=== PATIENT | male | born 1975 | race Caucasian/White ===

== ENCOUNTER → 2020-09-11 13:40 | Outpatient (CLI) | payer BC, SELFPAY ==
[2020-09-11 13:46] LABS: Basophils # 0.1 K/mm3 (0-0.2); Eosinophils # 0.2 K/mm3 (0.0-0.4); Eosinophils % 3.9 % (0.1-12.0); Hematocrit 49.7 % (42.0-52.0); Lymphocytes % 40.5 % (10-50); Mean Corpuscular HGB Conc 32.2 g/dL (31.8-35.4); Mean Corpuscular Hemoglobin 29.5 pg (27.0-31.2); Mean Corpuscular Volume 91.8 fl (80-94); Monocytes # 0.4 K/mm3 (0.1-1.0); Monocytes % 7.4 % (1.7-9.3); Neutrophils # 2.3 K/mm3 (1.8-7.8); Neutrophils % 46.2 % (37.0-80.0); Platelet Count 333 K/mm3 (142-424); Red Blood Count 5.42 M/mm3 (4.60-6.20); Red Cell Distribution Width 13.4 % (11.5-17.5); White Blood Count 4.9 K/mm3 (4.8-10.8)
[2020-09-11 14:29] LABS: Alanine Aminotransferase 19 U/L (12-78); Albumin/Globulin Ratio 1.4 (1.1-1.8); Alkaline Phosphatase 81 U/L (38-126); Anion Gap 12.4 mEq/L (5-15); Aspartate Amino Transferase 31 U/L (17-59); Bilirubin,Total 0.7 mg/dl (0.2-1.3); Blood Urea Nitrogen 17 mg/dl (9-20); Calcium 10.2 mg/dl (8.4-10.2); Carbon Dioxide 29 mmol/L (22.0-30.0); Chloride 101 mmol/L (98-107); Cholesterol 200 mg/dl (140-200); Estimated Glomerular Filt Rate 72 ml/min (>60); GFR (African American) 88 ML/MIN (>60); Globulin 3.5 g/dL (1.3-3.2); Glucose 108 mg/dl (74-100); HDL Cholesterol 67 mg/dl (40-60); Potassium 4.4 mmoL/L (3.5-5.1); Sodium 138 mmol/L (136-145); Total Protein,Serum 8.5 g/dl (6.3-8.2); Triglycerides 129 mg/dl (30-150); VLDL Cholesterol 26 mg/dL (0-40)
[2020-09-11 14:40] LABS: Direct LDL Cholesterol 91.98 mg/dL (100-129)
[2020-09-11 14:45] LABS: T4 (Thyroxine) 8.6 ug/dl (5.53-11.0)
[2020-09-11 14:46] LABS: 25-OH Vitamin D, Total 29.5 ng/mL (30-100)
[2020-09-11 14:56] LABS: Hemoglobin A1C 5.2 % (4.0-6.0)
[2020-09-11 14:58] LABS: Thyroid Stimulating Hormone 1.06 uIU/mL (0.465-4.68)
[2020-09-13 10:36] LABS: PSA, Free 0.18 ng/mL; Prostate Specific Ag 0.9 ng/mL (0.0-4.0)
== END ==
PROVIDERS: Visit Provider Nurse Practitioner Family
DX: Z00.00 Encounter for general adult medical examination without abnormal findings (principal); E11.9 Type 2 diabetes mellitus without complications; E55.9 Vitamin D deficiency, unspecified; Z12.5 Encounter for screening for malignant neoplasm of prostate
CPT/HCPCS: 80053; 80061; 82306; 83036; 84153; 84154; 84436; 84443; 85025

== ENCOUNTER → 2020-12-11 12:12 | Outpatient (CLI) | payer BC, SELFPAY ==
--- NOTE | 2020-12-11 12:17 | XR_ITS ---
PROCEDURE: XR FOOT WT BEARING LT 3V CLINICAL INDICATION: pain COMPARISON: No exams were available for comparison FINDINGS: No fracture or dislocation. No lytic or blastic change. There is normal mineralization. The joint spaces are well-preserved. No significant degenerative/arthritic changes. No erosive changes evident. Other findings:None. IMPRESSION: No acute findings. Dictated by: Lina Donohue 12/11/2020 14:05 Lina Donohue in [facility] 12/11/2020 14:05
--- NOTE | 2020-12-11 12:17 | XR_ITS ---
PROCEDURE: XR FOOT WT BEARING RT 3V CLINICAL INDICATION: pain COMPARISON: No exams were available for comparison FINDINGS: No fracture or dislocation. No lytic or blastic change. There is normal mineralization. The joint spaces are well-preserved. No significant degenerative/arthritic changes. Early erosive changes noted at the head of the proximal phalanx of the 1st digit. Other findings:None. IMPRESSION: No acute fractures or dislocations. Early erosive changes noted at the head of the proximal phalanx of the 1st digit. Dictated by: Lina Donohue 12/11/2020 14:08 Lina Donohue in [facility] 12/11/2020 14:08
== END ==
PROVIDERS: PCP Nurse Practitioner Family; Visit Provider Nurse Practitioner
DX: M79.672 Pain in left foot (principal); M79.671 Pain in right foot
CPT/HCPCS: 73630

== ENCOUNTER → 2020-12-18 16:02 | Outpatient (CLI) | payer BC, SELFPAY ==
[2020-12-18 16:39] LABS: Basophils # 0.1 K/mm3 (0-0.2); Basophils % 1.3 % (0.1-2.0); Eosinophils # 0.3 K/mm3 (0.0-0.4); Eosinophils % 3.2 % (0.1-12.0); Hemoglobin 13.7 g/dL (14.1-18.0); Lymphocytes # 2.2 K/mm3 (0.7-4.5); Lymphocytes % 27.7 % (10-50); Mean Corpuscular Hemoglobin 28.6 pg (27.0-31.2); Mean Corpuscular Volume 89.6 fl (80-94); Mean Platelet Volume 7.5 fl (7.4-10.4); Monocytes # 0.5 K/mm3 (0.1-1.0); Monocytes % 6.8 % (1.7-9.3); Neutrophils # 4.8 K/mm3 (1.8-7.8); Platelet Count 310 K/mm3 (142-424); Red Cell Distribution Width 12.5 % (11.5-17.5); White Blood Count 7.9 K/mm3 (4.8-10.8)
[2020-12-18 18:02] LABS: Erythrocyte Sedimentation Rate 8 mm/hr (0-15)
[2020-12-18 18:06] LABS: Alanine Aminotransferase 16 U/L (12-78); Albumin Level 5.1 g/dl (3.5-5.0); Albumin/Globulin Ratio 1.6 (1.1-1.8); Alkaline Phosphatase 86 U/L (38-126); Aspartate Amino Transferase 32 U/L (17-59); Bilirubin,Total 0.4 mg/dl (0.2-1.3); Blood Urea Nitrogen 13 mg/dl (9-20); Calcium 9.8 mg/dl (8.4-10.2); Carbon Dioxide 27 mmol/L (22.0-30.0); Chloride 102 mmol/L (98-107); Estimated Glomerular Filt Rate 65 ml/min (>60); GFR (African American) 79 ML/MIN (>60); Globulin 3.1 g/dL (1.3-3.2); Glucose 110 mg/dl (74-100); Sodium 139 mmol/L (136-145); Total Protein,Serum 8.2 g/dl (6.3-8.2)
== END ==
PROVIDERS: Visit Provider Nurse Practitioner
DX: M79.671 Pain in right foot (principal); L60.8 Other nail disorders
CPT/HCPCS: 36415; 80053; 85025; 85651; 86140

== ENCOUNTER → 2020-12-21 09:40 | Outpatient (CLI) | payer BC, SELFPAY ==
--- NOTE | 2020-12-21 09:42 | MR_ITS ---
PROCEDURE: MR FOOT RT WO/W CON CLINICAL INDICATION: foot pain evaluate for sub ungual melanoma. Nail color changes right 4th and 1st toe report Pt states he had covid in September 2020 First and fourth rt toes turned purple in October. Pt denies injury or trauma and any pain. Pt states the cause of this order is due to his prior x-rays showed infection in his toe. Pt is not a diabetic. Office notes scanned into exam. 16ml prohance used for contrast. Lot#[id number] exp:10/2022. COMPARISON: US ECHO ADULT from 03/06/2017 CR XR FOOT WT BEARING LT 3V from 12/11/2020 CR XR FOOT WT BEARING RT 3V from 12/11/2020 TECHNIQUE: Routine multiplanar multi echo sequences are performed without gadolinium enhancement. FINDINGS: Bones: There is vague slight increase in T2 signal involving the distal aspect of the distal phalanx of the great toe. This does not demonstrate contrast enhancement and is of questionable clinical significance. Small amount fluid is present in the subungual region of the great toe. A small well-circumscribed cystic areas present at the distal aspect of the proximal phalanx of the great toe and may represent a small geode. An area of osteochondrosis with osteochondral fragment involving the medial aspect of the talus. The osteochondral fragment measures 6 mm with fluid signal intensity along the undersurface of the fragment. Ligaments: Unremarkable. Tendons: Small amount fluid is present surrounding the flexor digitorum longus and flexor hallucis longus at the posterior talus region. Joints and soft tissues: Small amount fluid is present between the medial and mid cuneiform and at the 1st metatarsophalangeal junction. IMPRESSION: 1. Slight increase in T2 signal involves the distal aspect of the distal phalanx of the great toe. This is of questionable clinical significance. Bone marrow edema from overlying inflammation, infection, or posttraumatic changes are considered. 2. Small amount of subungual fluid of the great toe. 3. Well-circumscribed 4 mm cystic area involves the distal aspect of the proximal phalanx of the great toe medially and may be due to small geode. 4. Osteochondrosis with osteochondral defect involves the medial talus 5. No obvious mass Dictated by: Henrry Mayen MD 12/23/2020 13:47 Henrry Mayen MD in [facility] 12/23/2020 13:47
== END ==
PROVIDERS: PCP Nurse Practitioner Family; Visit Provider Podiatrist
DX: S90.229A Contusion of unspecified lesser toe(s) with damage to nail, initial encounter (principal); L60.8 Other nail disorders; R20.9 Unspecified disturbances of skin sensation
CPT/HCPCS: 73720; A9576

== ENCOUNTER → 2021-07-15 20:15 | Outpatient (CLI) | payer OTHER, SELFPAY | PROVIDERS: Visit Provider Nurse Practitioner Family | DX: Z20.822 Contact with and (suspected) exposure to COVID-19 (principal); J02.9 Acute pharyngitis, unspecified | CPT/HCPCS: C9803; U0003; U0005 ==

== ENCOUNTER 2023-05-04 09:20 | Inpatient (IN) | payer BC, SELFPAY ==
[2023-05-04] VITALS (10 sets, daily range): BP systolic 117–143; BP diastolic 61–87; PULSE 82–107; RESP 18–20; TEMP 36.6; O2SAT 94–99; BMI 24.9
[2023-05-04 09:47] LABS: Basophils % 0.3 % (0.1-2.0); Eosinophils # 0.1 K/mm3 (0.0-0.4); Hemoglobin 16.4 g/dL (14.1-18.0); Lymphocytes # 1.8 K/mm3 (0.7-4.5); Lymphocytes % 12.1 % (10-50); Mean Corpuscular HGB Conc 32.1 g/dL (31.8-35.4); Mean Corpuscular Hemoglobin 28.6 pg (27.0-31.2); Mean Corpuscular Volume 89.1 fl (80-94); Monocytes # 0.9 K/mm3 (0.1-1.0); Monocytes % 6.3 % (1.7-9.3); Neutrophils # 11.6 K/mm3 (1.8-7.8); Neutrophils % 80.3 % (37.0-80.0); Platelet Count 489 K/mm3 (142-424); Red Blood Count 5.73 M/mm3 (4.60-6.20); Red Cell Distribution Width 12.6 % (11.5-17.5); White Blood Count 14.5 K/mm3 (4.8-10.8)
[2023-05-04 09:50] LABS: Chloride 102 mmol/L (98-107); Potassium 4.1 mmoL/L (3.5-5.1); Sodium 139 mmol/L (136-145)
[2023-05-04 09:52] LABS: Alanine Aminotransferase 77 U/L (12-78); Aspartate Amino Transferase 64 U/L (17-59); Blood Urea Nitrogen 10 mg/dl (9-20); Creatinine Clearance Estimated 102 mL/min (50-200); Estimated Glomerular Filt Rate 71 ml/min (>60); GFR (African American) 86 ML/MIN (>60); Lipase 98 U/L (23-300)
[2023-05-04 09:53] LABS: Albumin Level 4.9 g/dl (3.5-5.0); Alkaline Phosphatase 145 U/L (38-126); Anion Gap 21.1 mEq/L (5-15); Bilirubin,Total 1.4 mg/dl (0.2-1.3); Calcium 10.3 mg/dl (8.4-10.2); Carbon Dioxide 20 mmol/L (22.0-30.0); Globulin 4.7 g/dL (1.3-3.2); Glucose 131 mg/dl (74-100); Total Protein,Serum 9.6 g/dl (6.3-8.2)
[2023-05-04 09:56] LABS: Lactic Acid 2.8 mmol/L (0.7-2.1)
--- NOTE | 2023-05-04 10:04 | CT_ITS ---
FINAL REPORT TECHNIQUE: After the administration of intravenous contrast, axial images were obtained through the abdomen and pelvis by computed tomography. This study was performed with technique to keep radiation doses as low as reasonably achievable, (ALARA). Individualized dose reduction techniques using automated exposure control or adjustment of the MA and/or KV according to the patient's size were employed. CLINICAL HISTORY: pain/n/v FINDINGS: Abdomen: The lung bases demonstrate scarring/atelectasis. There is a small, sliding-type hiatal hernia. Gallbladder is present. The liver is normal in size and attenuation. The spleen is unremarkable. The adrenals are normal. The pancreas is unremarkable. The kidneys enhance appropriately. The aorta is normal in caliber. There is no free fluid or adenopathy. There are multitude of fluid-filled loops of small bowel measuring up to 2.4 cm in diameter. Distal small bowel is relatively decompressed. Pattern is highly concerning for high-grade, partial or complete small bowel obstruction. No exact point of obstruction is identified. Pelvis: The appendix is not identified. The urinary bladder is unremarkable. There is moderate pelvic free fluid. IMPRESSION: Findings concerning for mechanical small bowel obstruction. Reviewed, Interpreted and Dictated by Hever Ozuna MD Transcribed by Caty Mata Authenticated and [facility]
--- NOTE | 2023-05-04 10:48 | PC.NURSE ---
RECHECK ON PT PAIN IS MUCH BETTER RESTING QUIETLY HE IS GONNA TRY TO GIVE A URINE SPECIMEN
--- NOTE | 2023-05-04 11:05 | PC.NURSE ---
URINE SENT TO LAB
[2023-05-04 11:08] LABS: Microscopic, Urine URINE MICROSCOPIC (MICROSCOPIC)
[2023-05-04 11:18] LABS: Appearance,Urine CLEAR (Clear); Blood, Urine Negative (Negative); Color,Urine YELLOW (Yellow); Glucose,Urine (UA) Negative (Negative); Ketones,Urine 3+ (Negative); Leukocyte Esterase,Urine Negative (Negative); Nitrate,Urine Negative (Negative); Protein,Urine TRACE (Negative); Urobilinogen,Urine 0.2 EU/dl (0.2)
--- NOTE | 2023-05-04 11:39 | PC.NURSE ---
contacted rad to check on status of ct results, states will fax down preliminary reports
--- NOTE | 2023-05-04 11:40 | HMH.EDGENADL ---
Discharge Plan Disposition Patient Disposition: Admitted Clinical Impressions Clinical Impression: SBO (small bowel obstruction) Discharge ED Provider: Mariam Figueroa General Adult HPI General Chief complaint: Abdominal Pain Stated complaint: severe stomach pain Time Seen by Provider: 05/04/23 09:28 Mode of Arrival: Ambulatory Source of Information: Patient Limitations: No Limitations Description of Symptoms (Recalled from ER Triage Doc. by RN): Pt reports abd pain that began approx 7:30 pm lastnight after eating. Pt reports multiple episodes of vomiting since pain began. Pt is across umbilicus area and in lower back History of Present Illness HPI narrative: This patient is a 48-year-old male with a history of appendectomy presenting to the emergency department for evaluation with concern for periumbilical abdominal pain that started around 7:30 PM last night after eating Tawanda around 5 PM. He states that his at home also had similar symptoms, however her symptoms have resolved. He was up all night vomiting and has been unable to keep anything down. He has had pain and cramping that has been persistent. He denies any fevers, chills, changes in bowel movements, urinary symptoms, rashes, or swelling. Related Data Home Medications Medication Instructions Recorded Confirmed omeprazole 20 mg capsule,delayed 20 mg PO DAILY Acid Reflux 05/04/23 05/04/23 release tadalafil 20 mg tablet 20 mg PO NEEDED PRN Sexual 05/04/23 05/04/23 Activity Allergies Allergy/AdvReac Type Severity Reaction Status Date / Time No Known Allergies Allergy Verified 04/16/23 11:19 [facility] Disclaimer: The information contained in this section may have been updated after the patient was seen, as this information can be updated by other users. Social History Smoking Status: Never smoker alcohol intake: never current occupational status: employed Travel in the last 8 weeks: None household members: significant other housing: house ROS Obtained: Yes All systems reviewed & no additional complaints except as documented Physical Exam General General appearance: alert and in no apparent distress Comment: Uncomfortable appearing Head Head exam: atraumatic and normocephalic Eye Eye exam: Present normal appearance, PERRL and EOMI ENT ENT exam: Present normal exam, normal oropharynx, mucous membranes moist and normal external ear exam Neck Neck exam: Present normal inspection, full ROM and trachea midline; Absent tenderness Chest Chest inspection: Present normal inspection and symmetric chest wall rise; Absent tenderness Respiratory Respiratory exam: Present normal lung sounds bilaterally; Absent respiratory distress, wheezes, stridor or accessory muscle use Cardiovascular Cardiovascular exam: Present regular rate and normal rhythm Abdominal Exam Abdominal exam: Present soft and tenderness (Periumbilical, lower abdomen); Absent distention, guarding or rebound Extremities Exam Extremities exam: Present normal inspection, full ROM and normal capillary refill; Absent tenderness or edema Back Exam Back exam: Present normal inspection and full ROM; Absent tenderness Neurological Exam Neurological exam: Present alert, oriented X3, CN II-XII intact and normal gait; Absent motor sensory deficit Psychiatric Psychiatric exam: Present normal affect and normal mood Skin Skin exam: Present warm and dry Medical Decision Making Medical Records Medical records reviewed: Yes I reviewed the patient's medical records. Reji Inquiry Pt receiving controlled substance: No Vital Signs: 05/04/23 09:26 05/04/23 09:30 05/04/23 10:30 Temperature 97.8 F Temperature Source Oral Pulse Rate 99 H 90 Pulse Rate [Right Radial] 99 H Respiratory Rate 20 20 18 Blood Pressure 117/69 124/77 Blood Pressure [Left Arm] 117/69 Blood Pressure Mean 84 92 Blood Pressure Mean [
--- NOTE | 2023-05-04 11:47 | PC.NURSE ---
Dr. Figueroa s/w Dr. Castillo for admission/consult for small bowel obstruction
--- NOTE | 2023-05-04 11:47 | PC.NURSE ---
ER MD Figueroa speaking with Dr. Castillo
--- NOTE | 2023-05-04 11:54 | PC.NURSE ---
Case management called for admission
--- NOTE | 2023-05-04 11:56 | EXP.HP ---
History of Present Illness *Admission Date: 05/05/23 *Reason for visit:: nausea, vomiting and abdominal pain x 1 day *History of present illness: Mr. Carr is a 48 year old male with a past medical history of GERD who presented to the ED with nausea, vomiting and abdominal pain ever since he had dinner yesterday. Initial workup in the ED reveals leukocytosis with 14.5K WBCs, t bili of 1.4, ast 64, alk phos 145, lactate of 2.8 which improved to 0.8, and an abd/pel ct wo revealed findings concerning for a high grade partial or complete small bowel obstruction. No exact point of obstruction is identified. He had surgery for ruptured appendix in 2003 and no other abdominal surgeries. He denies diarrhea, recent fever, chills and sick contacts. He denies chest pain, shortness of breath, cough and dysuria. [facility] Disclaimer: The information contained in this section may have been updated after the patient was seen, as this information can be updated by other users. Medical History Appendicitis Surgical History (Updated 05/05/23 @ 04:52 by Yordan Claros MD) History of appendectomy Family History (Updated 05/04/23 @ 15:06 by Whitney Hamilton RN) Other No significant family history Social History (Updated 05/04/23 @ 15:07 by Whitney Hamilton RN) Smoking Status: Never smoker alcohol intake: never current occupational status: employed Travel in the last 8 weeks: None household members: significant other housing: house Review of Systems *Gastrointestinal Gastrointestinal: Reports abdominal pain, Reports nausea and Reports vomiting Meds Home Medications and Allergies Home Medications Medication Instructions Recorded Confirmed Type omeprazole 20 mg capsule,delayed 20 mg PO DAILY Acid Reflux 05/04/23 05/04/23 History release tadalafil 20 mg tablet 20 mg PO NEEDED PRN Sexual 05/04/23 05/04/23 History Activity New Prescriptions to Start Prescriptions: Allergies Allergy/AdvReac Type Severity Reaction Status Date / Time No Known Allergies Allergy Verified 05/04/23 17:31 Exam Data for Last 24 hours Vital signs and Labs for Last 24 Hours: Temp Pulse Resp BP Pulse Ox O2 Del Method 97.8 F 90 18 124/77 95 Room Air 05/04/23 09:26 05/04/23 10:30 05/04/23 10:30 05/04/23 10:30 05/04/23 10:30 05/04/23 09:26 Laboratory Results - last 24 hr 05/04/23 09:30: WBC 14.5 H, RBC 5.73, Hgb 16.4, Hct 51.0, MCV 89.1, MCH 28.6, MCHC 32.1, RDW 12.6, Plt Count 489 H, MPV 8.0, Neut % (Auto) 80.3 H, Lymph % (Auto) 12.1, Ray % (Auto) 6.3, Eos % (Auto) 1.0, Baso % (Auto) 0.3, Neut # (Auto) 11.6 H, Lymph # (Auto) 1.8, Ray # (Auto) 0.9, Eos # (Auto) 0.1, Baso # (Auto) 0.0, Sodium 139, Potassium 4.1, Chloride 102, Carbon Dioxide 20 L, Anion Gap 21.1 H, BUN 10, Creatinine 1.10, Estimated Creat Clear 102, Estimated GFR 71, Est GFR ( Amer) 86, Glucose 131 H, Lactate 2.8 H, Calcium 10.3 H, Total Bilirubin 1.4 H, AST 64 H, ALT 77, Alkaline Phosphatase 145 H, Total Protein 9.6 H, Albumin 4.9, Globulin 4.7 H, Albumin/Globulin Ratio 1.0 L, Lipase 98 I & O for Last 24 hours: Intake & Output 05/01/23 05/02/23 05/03/23 05/04/23 23:59 23:59 23:59 23:59 Weight 87.997 kg Constitutional Constitutional: no acute distress *Routine HEENT Exam Head: Present normocephalic Eye: Present EOMI and PERRL ENT: Present mucous membranes moist and other (NG tube) *Routine Neck Exam Neck: Present supple; Absent lymphadenopathy *Routine Respiratory Exam Respiratory: Present CTA bilaterally *Routine Cardiovascular Exam Cardiovascular: Present RRR *Routine Abdominal Exam Abdominal: Present soft, normoactive bowel sounds and distended; Absent tenderness or rebound *Routine Rectal Exam Rectal:: deferred *Routine Genitalia Exam Genitalia:: deferred *Routine Extremities Exam Extremities: Absent cyanosis, clubbing or edema *Routine Skin
--- NOTE | 2023-05-04 12:05 | EXP.SURG.CON ---
History of Present Illness *Admission Date: 05/04/23 *Reason for visit:: Abdominal pain *History of present illness: Patient is a 48-year-old male with prior surgical history of appendectomy. He had onset of abdominal pain beginning approximately 7:30 PM last night on 05/03/2023 after he had eaten Tawanda a couple hours prior. This was followed by multiple episodes of vomiting. Apparently the patient's has had similar symptoms that were self-limited recently. He had diffuse cramping periumbilical pain. Evaluation in the emergency department revealed bilirubin of 1.4, AST 64, alkaline phosphatase 145. White blood cell count 14,500. He had a CT scan abdomen pelvis performed which reveals multiple fluid-filled loops of small bowel measuring up to 2.4 cm in diameter. The distal small bowel relatively decompressed. Pattern is highly concerning for high-grade, partial or complete small bowel obstruction. No exact point of obstruction is identified. Surgery was contacted. Patient states that he previously had open appendectomy for ruptured appendix in 2003 in [facility]. He did have a colonoscopy shortly thereafter which was reportedly normal. [facility] Disclaimer: The information contained in this section may have been updated after the patient was seen, as this information can be updated by other users. Social History Smoking Status: Never smoker alcohol intake: never current occupational status: employed Travel in the last 8 weeks: None household members: significant other housing: house Meds Home Medications and Allergies Home Medications Medication Instructions Recorded Confirmed Type omeprazole 20 mg capsule,delayed 20 mg PO DAILY gerd 05/04/23 05/04/23 History release tadalafil 20 mg tablet 20 mg PO NEEDED PRN Sexual 05/04/23 05/04/23 History Activity New Prescriptions to Start Prescriptions: Allergies Allergy/AdvReac Type Severity Reaction Status Date / Time No Known Allergies Allergy Verified 04/16/23 11:19 Exam (Inpt) Vital signs and Labs for Last 24 Hours: Temp Pulse Resp BP Pulse Ox O2 Del Method 97.8 F 90 18 124/77 95 Room Air 05/04/23 09:26 05/04/23 10:30 05/04/23 10:30 05/04/23 10:30 05/04/23 10:30 05/04/23 09:26 Laboratory Results - last 24 hr 05/04/23 09:30: WBC 14.5 H, RBC 5.73, Hgb 16.4, Hct 51.0, MCV 89.1, MCH 28.6, MCHC 32.1, RDW 12.6, Plt Count 489 H, MPV 8.0, Neut % (Auto) 80.3 H, Lymph % (Auto) 12.1, [place] % (Auto) 6.3, Eos % (Auto) 1.0, Baso % (Auto) 0.3, Neut # (Auto) 11.6 H, Lymph # (Auto) 1.8, [place] # (Auto) 0.9, Eos # (Auto) 0.1, Baso # (Auto) 0.0, Sodium 139, Potassium 4.1, Chloride 102, Carbon Dioxide 20 L, Anion Gap 21.1 H, BUN 10, Creatinine 1.10, Estimated Creat Clear 102, Estimated GFR 71, Est GFR ( Amer) 86, Glucose 131 H, Lactate 2.8 H, Calcium 10.3 H, Total Bilirubin 1.4 H, AST 64 H, ALT 77, Alkaline Phosphatase 145 H, Total Protein 9.6 H, Albumin 4.9, Globulin 4.7 H, Albumin/Globulin Ratio 1.0 L, Lipase 98 I & O for Labs for Last 24 Hours: Intake & Output 05/02/23 05/03/23 05/04/23 05/05/23 11:59 11:59 11:59 11:59 Weight 194 lb Constitutional: no acute distress Head: Present normocephalic Respiratory: Present CTA bilaterally Cardiac: Present Reg Rate and Rhythm GI: Present distention Comments:: Mild tenderness to deep palpation. Some distention. Rectal (male): Present deferred Results Labs 05/04/23 09:30 05/04/23 09:30 Labs: Laboratory Results - last 24 hr 05/04/23 09:30: WBC 14.5 H, RBC 5.73, Hgb 16.4, Hct 51.0, MCV 89.1, MCH 28.6, MCHC 32.1, RDW 12.6, Plt Count 489 H, MPV 8.0, Neut % (Auto) 80.3 H, Lymph % (Auto) 12.1, [place] % (Auto) 6.3, Eos % (Auto) 1.0, Baso % (Auto) 0.3, Neut # (Auto) 11.6 H, Lymph # (Auto) 1.8, [place] # (Auto) 0.9, Eos # (Auto) 0.1, Baso # (Auto) 0.0, Sodium 139, Potassium 4.1, Chloride 102,
--- NOTE | 2023-05-04 12:10 | XR_ITS ---
FINAL REPORT CLINICAL HISTORY: POST NG PLACEMENT COMPARISON: None FINDINGS: NG tube is looped in the esophagus. It appears the loop is at the GE junction. Catheter should be removed and repositioned. The heart size is normal. The mediastinum is normal. The lungs are clear. There are no pleural effusions. There is no pneumothorax. There is no osseous abnormality. IMPRESSION: No acute cardiopulmonary process. NG tube looped in the esophagus. Recommend remove and reposition. Reviewed, Interpreted and Dictated by Hever Ozuna MD Transcribed by Alyssa Baird Authenticated and [facility]
--- NOTE | 2023-05-04 12:13 | PC.NURSE ---
DR STEPHENSON AT BS
[2023-05-04 12:16] LABS: Bilirubin,Urine Negative (Negative)
[2023-05-04 12:20] LABS: Squamous Epithelial Cell,Urine Occasional #/hpf (0-5)
--- NOTE | 2023-05-04 12:32 | PC.NURSE ---
spoke with storehouse clerk reports pt assigned to room 204, room is being cleaned
--- NOTE | 2023-05-04 12:39 | PC.NURSE ---
ng tube pulled at this time. attempted to pull ng back and pt vomited, upon vomiting ng came out through mouth.
--- NOTE | 2023-05-04 12:48 | PC.NURSE ---
pt requested anxiety medication, notified ER MD Figueroa, pt medicated per MAR. Pt given warm blankets. family at BS
--- NOTE | 2023-05-04 12:50 | PC.NURSE ---
report called to carolyn davis on second floor at this, reports will send staff down to transport pt.
--- NOTE | 2023-05-04 13:11 | PC.NURSE ---
arrived to floor from ED by w/c
[2023-05-04 13:56] LABS: Reflex Lactic Add Lactic Reflex
--- NOTE | 2023-05-04 14:07 | XR_ITS ---
FINAL REPORT CLINICAL HISTORY: ng placement EVALUATE NG TUBE PLACEMENT REASON FOR EXAM. COMPARISON: Earlier film from 05/04/2023 FINDINGS: The heart size is normal. The mediastinum is normal. There is no focal infiltrate or edema. There are no pleural effusions. There is no pneumothorax. There is no osseous abnormality. The NG tube is once again curled in the distal esophagus. The tip is pointing cephalad. IMPRESSION: NG tube curled in the distal esophagus with its tip pointing towards the patient's head. Reviewed, Interpreted and Dictated by Hever Ozuna MD Transcribed by Shannan Lopez Authenticated and . [facility]
[2023-05-04 14:29] LABS: Lactic Acid Follow Up (RFLX 1) 0.8 mmol/L (0.7-2.1)
--- NOTE | 2023-05-04 15:30 | PC.NURSE ---
NG adjusted due to curling in the distal esophagus. Readjusted and aspirated gastric contents, NG now at 58 and hooked to low wall suction.
[2023-05-05 04:00] VITALS: BP 119/78; PULSE 111; RESP 18; TEMP 36.5; O2SAT 99; BMI 24.4
[2023-05-05 07:30] LABS: Basophils # 0.1 K/mm3 (0-0.2); Basophils % 0.6 % (0.1-2.0); Eosinophils # 0.1 K/mm3 (0.0-0.4); Eosinophils % 0.7 % (0.1-12.0); Hematocrit 51.4 % (42.0-52.0); Hemoglobin 16.4 g/dL (14.1-18.0); Lymphocytes # 1.7 K/mm3 (0.7-4.5); Lymphocytes % 17.4 % (10-50); Mean Corpuscular Volume 90.8 fl (80-94); Mean Platelet Volume 7.9 fl (7.4-10.4); Monocytes # 1.4 K/mm3 (0.1-1.0); Monocytes % 13.6 % (1.7-9.3); Neutrophils # 6.8 K/mm3 (1.8-7.8); Neutrophils % 67.8 % (37.0-80.0); Platelet Count 448 K/mm3 (142-424); Red Blood Count 5.67 M/mm3 (4.60-6.20); Red Cell Distribution Width 12.9 % (11.5-17.5)
[2023-05-05 07:43] VITALS: BP 127/76; PULSE 110; RESP 18; TEMP 36.8; O2SAT 98
[2023-05-05 07:45] LABS: Chloride 100 mmol/L (98-107); Potassium 3.7 mmoL/L (3.5-5.1); Sodium 137 mmol/L (136-145)
[2023-05-05 07:48] LABS: Alanine Aminotransferase 46 U/L (12-78); Albumin Level 4.3 g/dl (3.5-5.0); Albumin/Globulin Ratio 1.1 (1.1-1.8); Alkaline Phosphatase 126 U/L (38-126); Anion Gap 16.7 mEq/L (5-15); Aspartate Amino Transferase 42 U/L (17-59); Bilirubin,Total 1.1 mg/dl (0.2-1.3); Blood Urea Nitrogen 13 mg/dl (9-20); Calcium 9.3 mg/dl (8.4-10.2); Carbon Dioxide 24 mmol/L (22.0-30.0); Creatinine Clearance Estimated 92 mL/min (50-200); Estimated Glomerular Filt Rate 65 ml/min (>60); GFR (African American) 78 ML/MIN (>60); Glucose 128 mg/dl (74-100); Phosphorous 3.8 mg/dl (2.5-4.5); Total Protein,Serum 8.3 g/dl (6.3-8.2)
[2023-05-05 07:49] LABS: Magnesium 2.3 mg/dl (1.6-2.3)
[2023-05-05 11:29] VITALS: BP 127/74; PULSE 108; RESP 18; TEMP 37; O2SAT 99
--- NOTE | 2023-05-05 11:52 | XR_ITS ---
PROCEDURE INFORMATION: Exam: XR Complete Acute Abdomen Series Including Chest Exam date and time: 05/05/2023 12:01 PM Age: 48 years old Clinical indication: Abdominal pain; Generalized; Patient HX: Abd pain, sbo; Additional info: Abdominal pain, sbo TECHNIQUE: Imaging protocol: Radiologic exam. Complete acute abdomen series, including 2 or more views of the abdomen and a single view chest. COMPARISON: CR XR CHEST PORTABLE 05/04/2023 2:38 PM FINDINGS: Tubes, catheters and devices: There is an NG tube whose tip projects approximately 5 cm below the GE junction and should be advanced another 10 cm for better placement. Lungs: Normal. No consolidation. Pleural spaces: Normal. No pleural effusions. No pneumothorax. Heart/Mediastinum: Normal. No cardiomegaly. Gastrointestinal tract: There are a few scattered air-fluid levels within small bowel loops consistent with partial small bowel obstruction. No free air detected. Intraperitoneal space: See Gastrointestinal tract finding. Bones/joints: Normal. No acute fracture. Soft tissues: Normal. IMPRESSION: 1. NG tube in proximal stomach. 2. Bowel gas pattern consistent with history of partial small bowel obstruction.
[2023-05-05 15:11] VITALS: BP 126/74; PULSE 112; RESP 18; TEMP 37; O2SAT 99
--- NOTE | 2023-05-05 15:35 | PC.NURSE ---
NG tube advanced 10cm to 70cm per
--- NOTE | 2023-05-05 18:22 | EXP.ACUTE.PN ---
Subjective *Date: 05/05/23 *Time: 18:22 Interval history: Denies having any bowel movements or gas as of yet. NG still in place to low wall suction. Denies any further vomiting. No chest pain or shortness of breath. Abdominal discomfort improving but still present. Stable on room air Medical Exam Vital signs and Labs for Last 24 Hours: Vital Signs Temp Pulse Resp BP Pulse Ox O2 Del Method 05/05/23 15:00 Room Air 05/05/23 15:11 98.6 F 112 H 18 126/74 99 Room Air 05/05/23 13:00 Room Air 05/05/23 11:00 Room Air 05/05/23 09:00 Room Air 05/05/23 08:00 Room Air 05/05/23 11:29 98.6 F 108 H 18 127/74 99 Room Air 05/05/23 07:43 98.3 F 110 H 18 127/76 98 Room Air 05/05/23 06:43 Room Air 05/05/23 04:53 Room Air 05/05/23 04:00 97.7 F 111 H 18 119/78 99 Room Air 05/05/23 02:25 Room Air 05/05/23 01:00 Room Air 05/04/23 23:00 Room Air 05/04/23 20:00 Room Air 05/04/23 21:00 Room Air 05/04/23 20:00 97.8 F 107 H 18 126/77 94 L Room Air 05/04/23 19:00 Room Air Intake and Output 05/05/23 05/05/23 05/05/23 07:59 15:59 23:59 Intake Total 837 / 837 0 / 837 Output Total 1300 / 1500 200 / 1500 0 / 1500 Balance -463 / -663 -200 / -663 0 / -663 Intake: Intake, Oral Amount 0 / 0 0 / 0 Intake, Total IV Amount 837 / 837 Dex 5% in 0.45% NaCl 1,000 ml @ 837 / 837 75 mls/hr IV .[id number] [facility] Rx#: [id number] Output: Output, Urine Amount 250 / 450 200 / 450 0 / 450 Output, Gastric Drainage Amount 1050 / 1050 Left Nare 1050 / 1050 Other: Number of Unmeasured Voids 0 0 0 Weight 86.381 kg Patient Weight 05/05/23 23:59 Weight 86.381 kg Laboratory Results - last 24 hr 05/05/23 06:55: WBC 10.0 D, RBC 5.67, Hgb 16.4, Hct 51.4, MCV 90.8, MCH 29.0, MCHC 32.0, RDW 12.9, Plt Count 448 H, MPV 7.9, Neut % (Auto) 67.8, Lymph % (Auto) 17.4, [place] % (Auto) 13.6 H, Eos % (Auto) 0.7, Baso % (Auto) 0.6, Neut # (Auto) 6.8, Lymph # (Auto) 1.7, [place] # (Auto) 1.4 H, Eos # (Auto) 0.1, Baso # (Auto) 0.1, Sodium 137, Potassium 3.7, Chloride 100, Carbon Dioxide 24, Anion Gap 16.7 H, BUN 13 D, Creatinine 1.20, Estimated Creat Clear 92, Estimated GFR 65, Est GFR ( Amer) 78, Glucose 128 H, Calcium 9.3, Phosphorus 3.8, Magnesium 2.3, Total Bilirubin 1.1, AST 42 D, ALT 46 D, Alkaline Phosphatase 126, Total Protein 8.3 H, Albumin 4.3 D, Globulin 4.0 H, Albumin/Globulin Ratio 1.1 I & O for Labs for Last 24 Hours: Intake & Output 05/02/23 05/03/23 05/04/23 05/05/23 23:59 23:59 23:59 23:59 Intake Total 1000 / 1000 837 / 837 Output Total 300 / 300 1500 / 1500 Balance 700 / 700 -663 / -663 Weight 87.997 kg 86.381 kg Constitutional: Present no acute distress and average body habitus Head: Present atraumatic and normocephalic ENT: Present normal exam Comment:: NG in right nare Respiratory: Present normal respiratory effort; Absent rhonchi, stridor, wheezes or crackles Cardiac: Present Reg Rate and Rhythm GI: Present soft, tenderness (non focal) and normal bowel sounds; Absent distention Extremities: Present normal inspection and full ROM Skin: Present intact; Absent erythema Neuro: Present Grossly Intact, alert, awake, oriented x 3 and moves all extremities Assessment and Plan *Assessment and plan (1) SBO (small bowel obstruction): Status: Acute Category: Medical Code(s): K56.609 - Unspecified intestinal obstruction, unspecified as to partial versus complete obstruction (2) Gastroesophageal reflux disease: Status: Acute Category: Medical Code(s): K21.9 - Gastro-esophageal reflux disease without esophagitis Plan 48-year-old male with concern for small bowel obstruction. Continue with NG and bowel rest. Surgery consulted, appreciate their recommendations. Continues to require inpatient management. Problems addressed as follows: SBO -NG in place, co
[2023-05-05 20:00] VITALS: BP 120/70; PULSE 104; RESP 18; TEMP 37.1; O2SAT 95; O2SAT 99
--- NOTE | 2023-05-05 23:01 | PC.NURSE ---
PATIENT C/O NAUSEA. SAYS ZOFRAN NOT VERY HELPFUL. ARIADNA N.P. NOTIFIED. INSTRUCTED TO GIVE THE ZOFRAN IN 15 MINS AND CHECK FOR EFFECTIVENESS.
[2023-05-06 04:00] VITALS: BP 126/71; PULSE 110; RESP 18; TEMP 36.6; O2SAT 95; BMI 24.5
--- NOTE | 2023-05-06 04:09 | PC.NURSE ---
PATIENT A/O X 4. N/G TO LEFT NARE IN PLACE AND TO CONTINUOUS LOW WALL SUCTION. LARGE AMTS DARK GRRN GASTRIC SECRETIONS RETURNED. CONTINUES TO HAVE BOUTS OF NAUSEA. ABDOMEN MILDLY DISTENDED WITH + BOWEL SOUNDS X 4. HAS NOT PASSED GAS OR HAD BM YET. SPOUSE AT BEDSIDE.
[2023-05-06 06:35] LABS: Chloride 97 mmol/L (98-107); Sodium 135 mmol/L (136-145)
[2023-05-06 06:36] LABS: Basophils # 0.1 K/mm3 (0-0.2); Basophils % 0.6 % (0.1-2.0); Eosinophils # 0.1 K/mm3 (0.0-0.4); Hematocrit 49.1 % (42.0-52.0); Hemoglobin 15.8 g/dL (14.1-18.0); Lymphocytes # 1.8 K/mm3 (0.7-4.5); Lymphocytes % 15.3 % (10-50); Mean Corpuscular HGB Conc 32.1 g/dL (31.8-35.4); Mean Corpuscular Hemoglobin 28.9 pg (27.0-31.2); Mean Corpuscular Volume 90.1 fl (80-94); Mean Platelet Volume 8.3 fl (7.4-10.4); Monocytes # 1.5 K/mm3 (0.1-1.0); Monocytes % 13.1 % (1.7-9.3); Neutrophils # 8.1 K/mm3 (1.8-7.8); Neutrophils % 70.1 % (37.0-80.0); Platelet Count 440 K/mm3 (142-424); Red Blood Count 5.45 M/mm3 (4.60-6.20); Red Cell Distribution Width 12.6 % (11.5-17.5); White Blood Count 11.5 K/mm3 (4.8-10.8)
[2023-05-06 06:37] LABS: Blood Urea Nitrogen 19 mg/dl (9-20); Creatinine Clearance Estimated 85 mL/min (50-200); Estimated Glomerular Filt Rate 59 ml/min (>60); GFR (African American) 71 ML/MIN (>60)
[2023-05-06 06:38] LABS: Alanine Aminotransferase 35 U/L (12-78); Albumin Level 3.9 g/dl (3.5-5.0); Albumin/Globulin Ratio 1.1 (1.1-1.8); Alkaline Phosphatase 103 U/L (38-126); Aspartate Amino Transferase 32 U/L (17-59); Bilirubin,Total 1.1 mg/dl (0.2-1.3); Calcium 8.9 mg/dl (8.4-10.2); Carbon Dioxide 29 mmol/L (22.0-30.0); Globulin 3.7 g/dL (1.3-3.2); Glucose 127 mg/dl (74-100); Magnesium 2.2 mg/dl (1.6-2.3); Total Protein,Serum 7.6 g/dl (6.3-8.2)
[2023-05-06 07:38] VITALS: BP 124/69; PULSE 96; RESP 18; TEMP 36.7; O2SAT 95
--- NOTE | 2023-05-06 08:26 | FL_ITS ---
PROCEDURE INFORMATION: Exam: FL Small Intestine Exam date and time: 05/06/2023 9:06 AM Age: 48 years old Clinical indication: Condition or disease; Condition/disease: R/O sbo TECHNIQUE: Imaging protocol: Radiologic examination, small intestine, includes multiple serial images. Fluoroscopy is included if performed. COMPARISON: CR XR ACUTE ABDOMEN SERIES 05/05/2023 12:01 RADIATION DOSE METRICS: Fluoroscopy time (seconds): Not provided Number of fluoro spot images: 7 Reference air kerma (DAHIANA): Not provided. FINDINGS: Asbestos Worker: None performed. Intestine: On immediate post contrast imaging, bowel contrast extends into the jejunum. The proximal jejunum is dilated. By 4 hours, the contrast has reached the rectosigmoid colon. The majority of the small bowel is dilated and fluid-filled. IMPRESSION: Findings most likely represent partial small bowel obstruction.
--- NOTE | 2023-05-06 08:33 | EXP.SURG.PN ---
Subjective Patient reports: no new complaints and no flatus Narrative: Still with intermittent nausea that he claims is when the NG tube does not work right . Exam Data for Last 24 hours Vital signs and Labs for Last 24 Hours: Temp Pulse Resp BP Pulse Ox O2 Del Method 98.1 F 96 H 18 124/69 95 Room Air 05/06/23 07:38 05/06/23 07:38 05/06/23 07:38 05/06/23 07:38 05/06/23 07:38 05/06/23 08:00 Laboratory Results - last 24 hr 05/06/23 06:07: WBC 11.5 H, RBC 5.45, Hgb 15.8, Hct 49.1, MCV 90.1, MCH 28.9, MCHC 32.1, RDW 12.6, Plt Count 440 H, MPV 8.3, Neut % (Auto) 70.1, Lymph % (Auto) 15.3, [place] % (Auto) 13.1 H, Eos % (Auto) 1.0, Baso % (Auto) 0.6, Neut # (Auto) 8.1 H, Lymph # (Auto) 1.8, [place] # (Auto) 1.5 H, Eos # (Auto) 0.1, Baso # (Auto) 0.1, Sodium 135 L, Potassium 4.0, Chloride 97 L, Carbon Dioxide 29, Anion Gap 13.0, BUN 19 D, Creatinine 1.30 H, Estimated Creat Clear 85, Estimated GFR 59, Est GFR ( Amer) 71, Glucose 127 H, Calcium 8.9, Magnesium 2.2, Total Bilirubin 1.1, AST 32, ALT 35, Alkaline Phosphatase 103, Total Protein 7.6, Albumin 3.9, Globulin 3.7 H, Albumin/Globulin Ratio 1.1 I & O for Last 24 hours: Intake & Output 05/03/23 05/04/23 05/05/23 05/06/23 11:59 11:59 11:59 11:59 Intake Total 1837 / 1837 1704 / 1704 Output Total 1800 / 1800 1100 / 1100 Balance 37 / 604 / 604 Weight 194 lb 190 lb 7 oz 190 lb 12.8 oz Constitutional Constitutional: no acute distress *Routine Respiratory Exam Respiratory: Absent respiratory distress *Routine Cardiovascular Exam Cardiovascular: Present RRR *Routine Abdominal Exam Abdominal: Present soft Comments: The patient currently is sitting in chair (supine exam not completed) Progress Note: A&P Assessment and plan (1) SBO (small bowel obstruction): Status: Acute Assessment and plan: Small bowel follow-through pending (2) Gastroesophageal reflux disease: Status: Acute
[2023-05-06 11:27] VITALS: BP 146/84; PULSE 98; RESP 17; TEMP 36.4; O2SAT 96
--- NOTE | 2023-05-06 13:06 | EXP.ACUTE.PN ---
Subjective *Date: 05/06/23 *Time: 13:06 Interval history: NG remains in place. Transition to clamped this morning after receiving oral contrast for small bowel follow-through. Stable on room air. Making urine. Has had some nausea since clamping NG. Afebrile and hemodynamically stable. Medical Exam Vital signs and Labs for Last 24 Hours: Vital Signs Temp Pulse Resp BP Pulse Ox O2 Del Method 05/06/23 12:43 Room Air 05/06/23 11:27 97.5 F L 98 H 17 146/84 H 96 Room Air 05/06/23 11:00 Room Air 05/06/23 09:00 Room Air 05/06/23 08:00 Room Air 05/06/23 07:38 98.1 F 96 H 18 124/69 95 Room Air 05/06/23 06:40 Room Air 05/06/23 04:00 97.9 F 110 H 18 126/71 95 Room Air 05/06/23 04:51 Room Air 05/06/23 03:00 Room Air 05/06/23 01:00 Room Air 05/05/23 22:59 Room Air 05/05/23 21:00 Room Air 05/05/23 20:00 98.7 F 104 H 18 120/70 95 Room Air 05/05/23 20:00 99 Room Air 05/05/23 19:00 Room Air 05/05/23 15:00 Room Air 05/05/23 15:11 98.6 F 112 H 18 126/74 99 Room Air Intake and Output 05/05/23 05/06/23 05/06/23 23:59 07:59 15:59 Intake Total 1704 / 1704 Output Total 450 / 1950 650 / 650 0 / 650 Balance -450 / -1113 1054 / 1054 0 / 1054 Intake: Intake, Oral Amount 120 / 120 Intake, Total IV Amount 1584 / 1584 Dex 5% in 0.45% NaCl 1,000 ml @ 1584 / 1584 75 mls/hr IV .[id number] [facility] Rx#: [id number] Output: Output, Urine Amount 0 / 450 0 / 0 0 / 0 Output, Other Amount 450 / 450 Output, Gastric Drainage Amount 650 / 650 Left Nare 650 / 650 Other: Number of Voids 2 Number of Unmeasured Voids 0 1 1 Weight 86.545 kg Patient Weight 05/06/23 23:59 Weight 86.545 kg Laboratory Results - last 24 hr 05/06/23 06:07: WBC 11.5 H, RBC 5.45, Hgb 15.8, Hct 49.1, MCV 90.1, MCH 28.9, MCHC 32.1, RDW 12.6, Plt Count 440 H, MPV 8.3, Neut % (Auto) 70.1, Lymph % (Auto) 15.3, [place] % (Auto) 13.1 H, Eos % (Auto) 1.0, Baso % (Auto) 0.6, Neut # (Auto) 8.1 H, Lymph # (Auto) 1.8, [place] # (Auto) 1.5 H, Eos # (Auto) 0.1, Baso # (Auto) 0.1, Sodium 135 L, Potassium 4.0, Chloride 97 L, Carbon Dioxide 29, Anion Gap 13.0, BUN 19 D, Creatinine 1.30 H, Estimated Creat Clear 85, Estimated GFR 59, Est GFR ( Amer) 71, Glucose 127 H, Calcium 8.9, Magnesium 2.2, Total Bilirubin 1.1, AST 32, ALT 35, Alkaline Phosphatase 103, Total Protein 7.6, Albumin 3.9, Globulin 3.7 H, Albumin/Globulin Ratio 1.1 I & O for Labs for Last 24 Hours: Intake & Output 05/03/23 05/04/23 05/05/23 05/06/23 23:59 23:59 23:59 23:59 Intake Total 1000 / 1000 837 / 837 1704 / 1704 Output Total 300 / 300 1950 / 1950 650 / 650 Balance 700 / 700 -1113 / -1113 1054 / 1054 Weight 87.997 kg 86.381 kg 86.545 kg Constitutional: Present no acute distress and average body habitus Head: Present atraumatic and normocephalic ENT: Present normal exam Comment:: NG in right nare Respiratory: Present normal respiratory effort; Absent rhonchi, stridor, wheezes or crackles Cardiac: Present Reg Rate and Rhythm GI: Present soft, tenderness (non focal) and normal bowel sounds; Absent distention Extremities: Present normal inspection and full ROM Skin: Present intact; Absent erythema Neuro: Present Grossly Intact, alert, awake, oriented x 3 and moves all extremities Assessment and Plan *Assessment and plan (1) SBO (small bowel obstruction): Status: Acute Category: Medical Code(s): K56.609 - Unspecified intestinal obstruction, unspecified as to partial versus complete obstruction (2) Gastroesophageal reflux disease: Status: Acute Category: Medical Code(s): K21.9 - Gastro-esophageal reflux disease without esophagitis Plan 48-year-old male with concern for small bowel obstruction. Continue with NG and bowel rest. Surgery consulted, appreciate their recommendations. Continues to require inpatient man
--- NOTE | 2023-05-06 13:15 | EXP.SURG.PN ---
Subjective Narrative: Patient still undergoing imaging with small bowel follow-through. He has had multiple liquid bowel movements. This is reassuring. However, he also has had significant amount of vomiting. Review of the early images reveals contrast in the small bowel. Exam Data for Last 24 hours Vital signs and Labs for Last 24 Hours: Temp Pulse Resp BP Pulse Ox O2 Del Method 97.5 F L 98 H 17 146/84 H 96 Room Air 05/06/23 11:27 05/06/23 11:27 05/06/23 11:27 05/06/23 11:27 05/06/23 11:27 05/06/23 12:43 Laboratory Results - last 24 hr 05/06/23 06:07: WBC 11.5 H, RBC 5.45, Hgb 15.8, Hct 49.1, MCV 90.1, MCH 28.9, MCHC 32.1, RDW 12.6, Plt Count 440 H, MPV 8.3, Neut % (Auto) 70.1, Lymph % (Auto) 15.3, [place] % (Auto) 13.1 H, Eos % (Auto) 1.0, Baso % (Auto) 0.6, Neut # (Auto) 8.1 H, Lymph # (Auto) 1.8, [place] # (Auto) 1.5 H, Eos # (Auto) 0.1, Baso # (Auto) 0.1, Sodium 135 L, Potassium 4.0, Chloride 97 L, Carbon Dioxide 29, Anion Gap 13.0, BUN 19 D, Creatinine 1.30 H, Estimated Creat Clear 85, Estimated GFR 59, Est GFR ( Amer) 71, Glucose 127 H, Calcium 8.9, Magnesium 2.2, Total Bilirubin 1.1, AST 32, ALT 35, Alkaline Phosphatase 103, Total Protein 7.6, Albumin 3.9, Globulin 3.7 H, Albumin/Globulin Ratio 1.1 I & O for Last 24 hours: Intake & Output 05/04/23 05/05/23 05/06/23 05/07/23 11:59 11:59 11:59 11:59 Intake Total 1837 / 1837 1704 / 1704 Output Total 1800 / 1800 1100 / 1100 0 / 0 Balance 37 / 37 604 / 604 0 / 0 Weight 194 lb 190 lb 7 oz 190 lb 12.8 oz Progress Note: A&P Assessment and plan (1) SBO (small bowel obstruction): Status: Acute Assessment and plan: Await delayed imaging. If this shows contrast through to the colon attempt may be made at removing the nasogastric tube as he feels that this is causing him some gagging and inducing vomiting. However, I did explain to him that given his clinical symptoms he may require surgical intervention. (2) Gastroesophageal reflux disease: Status: Acute
[2023-05-06 15:08] VITALS: BP 136/85; PULSE 94; RESP 18; TEMP 36.6; O2SAT 95
--- NOTE | 2023-05-06 16:18 | PC.NURSE ---
PT IS RESTING IN BED WITH FAMILY AT BEDSIDE. ALERT AND ORIENTED X4. PT HAS AMBULATED TO THE BATHROOM AND IN THE ROOM SEVERAL TIMES THIS SHIFT. PT HAS HAD SEVERAL LOOSE BOWEL MOVEMENTS. PT STATES HE FEELS NAUSEATED WHEN THE NG TUBE IS DISCONNECTED. 800 ML'S OF GREEN GASTRIC CONTENTS EMPTIED FROM NG CANISTER. ABDOMEN SOFT/NON TENDER/MILDLY DISTENDED. LUNG SOUNDS CLEAR. VSS. WILL CONTINUE TO MONITOR.
[2023-05-06 20:00] VITALS: BP 117/77; PULSE 89; RESP 18; TEMP 36.8; O2SAT 98
[2023-05-07] VITALS (7 sets, daily range): BP systolic 102–127; BP diastolic 64–79; PULSE 80–94; RESP 16–20; TEMP 36.5–36.9; O2SAT 94–98; BMI 23.8; BMI 23.7
--- NOTE | 2023-05-07 05:10 | PC.NURSE ---
VS stable, pt on room air. NG tube in left nare at 70. 500 output noted from ng. No nausea noted. Pt NPO for possible surgery. No changes noted.
[2023-05-07 07:08] LABS: Basophils # 0.1 K/mm3 (0-0.2); Basophils % 0.7 % (0.1-2.0); Eosinophils # 0.2 K/mm3 (0.0-0.4); Eosinophils % 1.6 % (0.1-12.0); Hematocrit 48.4 % (42.0-52.0); Hemoglobin 15.9 g/dL (14.1-18.0); Lymphocytes # 2.1 K/mm3 (0.7-4.5); Lymphocytes % 19.4 % (10-50); Mean Corpuscular HGB Conc 32.7 g/dL (31.8-35.4); Mean Corpuscular Hemoglobin 29.3 pg (27.0-31.2); Mean Corpuscular Volume 89.6 fl (80-94); Mean Platelet Volume 8.1 fl (7.4-10.4); Monocytes # 1.3 K/mm3 (0.1-1.0); Neutrophils % 66.3 % (37.0-80.0); Platelet Count 428 K/mm3 (142-424); Red Blood Count 5.41 M/mm3 (4.60-6.20); Red Cell Distribution Width 12.7 % (11.5-17.5); White Blood Count 10.5 K/mm3 (4.8-10.8)
[2023-05-07 07:23] LABS: Chloride 93 mmol/L (98-107); Potassium 3.4 mmoL/L (3.5-5.1); Sodium 137 mmol/L (136-145)
[2023-05-07 07:25] LABS: Alanine Aminotransferase 34 U/L (12-78); Alkaline Phosphatase 100 U/L (38-126); Aspartate Amino Transferase 36 U/L (17-59); Bilirubin,Total 0.8 mg/dl (0.2-1.3); Blood Urea Nitrogen 27 mg/dl (9-20); Creatinine Clearance Estimated 77 mL/min (50-200); Estimated Glomerular Filt Rate 54 ml/min (>60); GFR (African American) 65 ML/MIN (>60)
[2023-05-07 07:26] LABS: Albumin Level 4.2 g/dl (3.5-5.0); Anion Gap 14.4 mEq/L (5-15); Calcium 9.4 mg/dl (8.4-10.2); Carbon Dioxide 33 mmol/L (22.0-30.0); Globulin 4.1 g/dL (1.3-3.2); Glucose 122 mg/dl (74-100); Total Protein,Serum 8.3 g/dl (6.3-8.2)
[2023-05-07 07:28] LABS: Magnesium 2.4 mg/dl (1.6-2.3)
--- NOTE | 2023-05-07 07:34 | XR_ITS ---
FINAL REPORT CLINICAL HISTORY: BOWEL OBSTRUCTION COMPARISON: 05/05/2023 FINDINGS: Chest: The heart and mediastinal within normal limits. There is mild scarring or atelectasis at the right lung base. There is no pneumothorax. Osseous structures are unremarkable. Abdomen: AP and upright views of the abdomen were obtained. NG tube is present with the tip below the inferior margin of the film. Contrast is seen in the decompressed colon. There is no free air. No abnormal calcifications are identified. IMPRESSION: Mild scarring or atelectasis right lung base. NG tube present. Contrast seen in the decompressed colon. Reviewed, Interpreted and Dictated by Hever Ozuna MD Transcribed by Alyssa Baird Authenticated and [facility]
--- NOTE | 2023-05-07 07:55 | P.PN_ITS ---
Subjective Narrative: Patient states that he actually feels pretty good. He has had some problems when the NG tube is clamped with nausea and vomiting. He attributes this to gag reflex and NG tube irritation. Small bowel follow-through reveals contrast to the rectosigmoid colon by 4 hours interpreted as findings most likely represent partial small bowel obstruction. Exam Data for Last 24 hours Vital signs and Labs for Last 24 Hours: Temp Pulse Resp BP Pulse Ox O2 Del Method 98.4 F 94 H 18 122/78 96 Room Air 05/07/23 04:00 05/07/23 04:00 05/07/23 04:00 05/07/23 04:00 05/07/23 04:00 05/07/23 06:41 Laboratory Results - last 24 hr 05/07/23 05:30: WBC 10.5, RBC 5.41, Hgb 15.9, Hct 48.4, MCV 89.6, MCH 29.3, MCHC 32.7, RDW 12.7, Plt Count 428 H, MPV 8.1, Neut % (Auto) 66.3, Lymph % (Auto) 19.4, [place] % (Auto) 12.0 H, Eos % (Auto) 1.6, Baso % (Auto) 0.7, Neut # (Auto) 7.0, Lymph # (Auto) 2.1, [place] # (Auto) 1.3 H, Eos # (Auto) 0.2, Baso # (Auto) 0.1, Sodium 137, Potassium 3.4 L, Chloride 93 L, Carbon Dioxide 33 H, Anion Gap 14.4, BUN 27 H D, Creatinine 1.40 H, Estimated Creat Clear 77, Estimated GFR 54 L, Est GFR ( Amer) 65, Glucose 122 H, Calcium 9.4, Magnesium 2.4 H, Total Bilirubin 0.8, AST 36, ALT 34, Alkaline Phosphatase 100, Total Protein 8.3 H, Albumin 4.2, Globulin 4.1 H, Albumin/Globulin Ratio 1.0 L I & O for Last 24 hours: Intake & Output 05/04/23 05/05/23 05/06/23 05/07/23 11:59 11:59 11:59 11:59 Intake Total 1837 / 1837 1704 / 1704 2443 / 2443 Output Total 1800 / 1800 1100 / 1100 2049 Balance 37 / 37 604 / 604 393 / 393 Weight 194 lb 190 lb 7 oz 190 lb 12.8 oz 185 lb 7 oz *Routine Abdominal Exam Abdominal: Present soft; Absent tenderness Progress Note: A&P Assessment and plan (1) SBO (small bowel obstruction): Status: Acute Assessment and plan: Plan to follow-up with images this morning. Pending these findings may do attempt at clamping nasogastric tube. Of course if he does not tolerate this or images show ongoing obstruction could require operative intervention. However, patient has subjectively shown clinical improvement. (2) Gastroesophageal reflux disease: Status: Acute
--- NOTE | 2023-05-07 12:56 | EXP.ACUTE.PN ---
Subjective *Date: 05/07/23 *Time: 12:56 Interval history: Patient feeling better this morning. Having small bowel movements. Small bowel follow-through showed partial small bowel obstruction. Has dry heaving with gagging due to NG tube. Otherwise does not have zia nausea. No shortness of breath or chest pain. Has had a mildly productive cough but was sick before he came in per his report. No fever, confusion, headache. Medical Exam Vital signs and Labs for Last 24 Hours: Vital Signs Temp Pulse Resp BP Pulse Ox O2 Del Method 05/07/23 12:00 97.9 F 87 16 127/79 97 Room Air 05/07/23 11:41 Room Air 05/07/23 09:48 Room Air 05/07/23 08:00 98 Room Air 05/07/23 09:00 Room Air 05/07/23 08:00 97.7 F 93 H 17 127/74 95 Room Air 05/07/23 06:41 Room Air 05/07/23 04:50 Room Air 05/07/23 04:00 98.4 F 94 H 18 122/78 96 Room Air 05/07/23 03:00 Room Air 05/07/23 01:00 Room Air 05/06/23 23:00 Room Air 05/06/23 20:20 Room Air 05/07/23 00:00 98.0 F 93 H 18 118/70 97 Room Air 05/06/23 21:00 Room Air 05/06/23 20:00 98.2 F 89 18 117/77 98 Room Air 05/06/23 18:41 Room Air 05/06/23 17:00 Room Air 05/06/23 15:08 97.8 F 94 H 18 136/85 95 Room Air 05/06/23 14:29 Room Air Intake and Output 05/06/23 05/07/23 05/07/23 23:59 07:59 15:59 Intake Total 1930 512 / 171 1200 / 1712 Output Total 1550 / 2200 500 / 500 0 / 500 Balance 381 / 1435 1211 1200 1212 Intake: Intake, Oral Amount 0 / 0 Intake, Total IV Amount 1930 512 / 1712 1200 / 2 Dex 5% in 0.45% NaCl 1,000 ml @ 1930 512 / 512 75 mls/hr IV .[id number] [facility] Rx#: [id number] KCl 10mEq/100ml 100 ml @ 100 200 / 200 mls/hr IV Q1H [facility] Rx#:[id number] Lactated Ringers 1000ML 1,000 1000 / 1000 ml @ 250 mls/hr IV .Q4H [facility] Rx# :[id number] Output: Output, Urine Amount 0 / 0 0 / 0 0 / 0 Output, Gastric Drainage Amount 1550 / 2200 500 / 500 Left Nare 1550 / 2200 500 / 500 Other: Number of Unmeasured Voids 1 1 1 Number of Bowel Movements 1 Weight 84.113 kg Patient Weight 05/07/23 23:59 Weight 84.113 kg Laboratory Results - last 24 hr 05/07/23 05:30: WBC 10.5, RBC 5.41, Hgb 15.9, Hct 48.4, MCV 89.6, MCH 29.3, MCHC 32.7, RDW 12.7, Plt Count 428 H, MPV 8.1, Neut % (Auto) 66.3, Lymph % (Auto) 19.4, [place] % (Auto) 12.0 H, Eos % (Auto) 1.6, Baso % (Auto) 0.7, Neut # (Auto) 7.0, Lymph # (Auto) 2.1, [place] # (Auto) 1.3 H, Eos # (Auto) 0.2, Baso # (Auto) 0.1, Sodium 137, Potassium 3.4 L, Chloride 93 L, Carbon Dioxide 33 H, Anion Gap 14.4, BUN 27 H D, Creatinine 1.40 H, Estimated Creat Clear 77, Estimated GFR 54 L, Est GFR ( Amer) 65, Glucose 122 H, Calcium 9.4, Magnesium 2.4 H, Total Bilirubin 0.8, AST 36, ALT 34, Alkaline Phosphatase 100, Total Protein 8.3 H, Albumin 4.2, Globulin 4.1 H, Albumin/Globulin Ratio 1.0 L I & O for Labs for Last 24 Hours: Intake & Output 05/04/23 05/05/23 05/06/23 05/07/23 23:59 23:59 23:59 23:59 Intake Total 1000 / 1000 837 / 837 3635 / 3635 1712 / 1712 Output Total 300 / 300 1950 / 1950 2200 / 2200 500 / 500 Balance 700 / 700 -1113 / -1113 1435 / 1435 1212 / 1212 Weight 87.997 kg 86.381 kg 86.545 kg 84.113 kg Constitutional: Present no acute distress and average body habitus Head: Present atraumatic and normocephalic ENT: Present normal exam Comment:: NG in right nare Respiratory: Present normal respiratory effort; Absent rhonchi, stridor, wheezes or crackles Cardiac: Present Reg Rate and Rhythm GI: Present soft, tenderness (non focal) and normal bowel sounds; Absent distention Extremities: Present normal inspection and full ROM Skin: Present intact; Absent erythema Neuro: Present Grossly Intact, alert, awake, oriented x 3 and moves all extremities Assessment and Plan *Assessment and plan (1) SBO (small bowel obstruction): Status: A
--- NOTE | 2023-05-07 13:06 | PC.NURSE ---
NG removed per Dr. Castillo verbal.
[2023-05-08 04:00] VITALS: BP 109/64; PULSE 80; RESP 20; TEMP 36.6; O2SAT 94; BMI 24.0
--- NOTE | 2023-05-08 04:47 | PC.NURSE ---
Patient has had a great night. No issues. Patient has walked the halls and tolerated sips and chips with no pain or nausea. Patient did get a bath last night
[2023-05-08 06:17] LABS: Basophils # 0.1 K/mm3 (0-0.2); Basophils % 0.8 % (0.1-2.0); Eosinophils # 0.2 K/mm3 (0.0-0.4); Eosinophils % 2.9 % (0.1-12.0); Hematocrit 43.8 % (42.0-52.0); Hemoglobin 14.3 g/dL (14.1-18.0); Lymphocytes # 1.7 K/mm3 (0.7-4.5); Lymphocytes % 20.9 % (10-50); Mean Corpuscular HGB Conc 32.5 g/dL (31.8-35.4); Mean Corpuscular Hemoglobin 28.7 pg (27.0-31.2); Mean Corpuscular Volume 88.3 fl (80-94); Mean Platelet Volume 7.7 fl (7.4-10.4); Monocytes # 0.9 K/mm3 (0.1-1.0); Monocytes % 10.5 % (1.7-9.3); Neutrophils # 5.3 K/mm3 (1.8-7.8); Platelet Count 345 K/mm3 (142-424); Red Blood Count 4.96 M/mm3 (4.60-6.20); Red Cell Distribution Width 12.4 % (11.5-17.5); White Blood Count 8.1 K/mm3 (4.8-10.8)
[2023-05-08 06:19] LABS: Chloride 94 mmol/L (98-107); Potassium 3.3 mmoL/L (3.5-5.1); Sodium 134 mmol/L (136-145)
[2023-05-08 06:22] LABS: Alanine Aminotransferase 26 U/L (12-78); Albumin Level 3.8 g/dl (3.5-5.0); Albumin/Globulin Ratio 1.1 (1.1-1.8); Alkaline Phosphatase 80 U/L (38-126); Anion Gap 14.3 mEq/L (5-15); Aspartate Amino Transferase 28 U/L (17-59); Blood Urea Nitrogen 24 mg/dl (9-20); Calcium 8.8 mg/dl (8.4-10.2); Carbon Dioxide 29 mmol/L (22.0-30.0); Creatinine Clearance Estimated 91 mL/min (50-200); Estimated Glomerular Filt Rate 65 ml/min (>60); GFR (African American) 78 ML/MIN (>60); Globulin 3.4 g/dL (1.3-3.2); Glucose 105 mg/dl (74-100); Total Protein,Serum 7.2 g/dl (6.3-8.2)
--- NOTE | 2023-05-08 06:31 | P.PN_ITS ---
Subjective Narrative: Yesterday patient felt quite well and x-ray showed no evidence of any obstruction. He has tolerated his NG tube out and has taken a few sips of liquids and ice chips. However, it is concerning that the patient describes some occasional abdominal cramping. Exam Data for Last 24 hours Vital signs and Labs for Last 24 Hours: Temp Pulse Resp BP Pulse Ox O2 Del Method 97.9 F 80 20 109/64 L 94 L Room Air 05/08/23 04:00 05/08/23 04:00 05/08/23 04:00 05/08/23 04:00 05/08/23 04:00 05/08/23 05:00 Laboratory Results - last 24 hr 05/07/23 05:30: WBC 10.5, RBC 5.41, Hgb 15.9, Hct 48.4, MCV 89.6, MCH 29.3, MCHC 32.7, RDW 12.7, Plt Count 428 H, MPV 8.1, Neut % (Auto) 66.3, Lymph % (Auto) 19.4, [place] % (Auto) 12.0 H, Eos % (Auto) 1.6, Baso % (Auto) 0.7, Neut # (Auto) 7.0, Lymph # (Auto) 2.1, [place] # (Auto) 1.3 H, Eos # (Auto) 0.2, Baso # (Auto) 0.1, Sodium 137, Potassium 3.4 L, Chloride 93 L, Carbon Dioxide 33 H, Anion Gap 14.4, BUN 27 H D, Creatinine 1.40 H, Estimated Creat Clear 77, Estimated GFR 54 L, Est GFR ( Amer) 65, Glucose 122 H, Calcium 9.4, Magnesium 2.4 H, Total Bilirubin 0.8, AST 36, ALT 34, Alkaline Phosphatase 100, Total Protein 8.3 H, Albumin 4.2, Globulin 4.1 H, Albumin/Globulin Ratio 1.0 L 05/08/23 05:48: WBC 8.1, RBC 4.96, Hgb 14.3, Hct 43.8, MCV 88.3, MCH 28.7, MCHC 32.5, RDW 12.4, Plt Count 345, MPV 7.7, Neut % (Auto) 65.0, Lymph % (Auto) 20.9, [place] % (Auto) 10.5 H, Eos % (Auto) 2.9, Baso % (Auto) 0.8, Neut # (Auto) 5.3, Lymph # (Auto) 1.7, [place] # (Auto) 0.9, Eos # (Auto) 0.2, Baso # (Auto) 0.1 I & O for Last 24 hours: Intake & Output 05/05/23 05/06/23 05/07/23 05/08/23 11:59 11:59 11:59 11:59 Intake Total 1837 / 1837 1704 / 1704 3643 / 3643 1200 / 1200 Output Total 1800 / 1800 1100 / 1100 2050 / 0 0 / 0 Balance 37 / 37 604 / 604 1593 / 1593 1200 / 1200 Weight 190 lb 7 oz 190 lb 12.8 oz 185 lb 7 oz 187 lb 12.8 oz *Routine Abdominal Exam Abdominal: Present soft Progress Note: A&P Assessment and plan (1) SBO (small bowel obstruction): Status: Acute Assessment and plan: Patient is not clearly showing signs of definite resolution of possible bowel obstruction. At this time plan for careful judicious clear liquid diet. If symptoms recur likely needs operative intervention. (2) Gastroesophageal reflux disease: Status: Acute
[2023-05-08 06:41] LABS: Magnesium 2.2 mg/dl (1.6-2.3)
[2023-05-08 07:45] VITALS: O2SAT 98
[2023-05-08 08:00] VITALS: BP 125/74; PULSE 83; RESP 18; TEMP 37.2; O2SAT 96
--- NOTE | 2023-05-08 09:20 | PC.NURSE ---
TECH NOTE; PT AMBULATED LENGTH OF HALLWAY TWICE, ACTIVITY TOLERATED WELL. K SEAN, SRNA
--- NOTE | 2023-05-08 10:50 | PC.NURSE ---
courtesy tech note: pt rounded on. pt has visitors at bedside. no verbalized requests at this time. call light within reach.
[2023-05-08 12:00] VITALS: BP 125/73; PULSE 72; RESP 18; TEMP 36.9; O2SAT 97
--- NOTE | 2023-05-08 12:37 | EXP.ACUTE.PN ---
Subjective *Date: 05/08/23 *Time: 19:26 Interval history: Feeling better this morning. Having some cramping with water but no cramping with juice and broth. Having bowel movements when he cramps. Ambulating independently. No fevers. Stable on room air. Overall feeling better, like he is moving the right direction. Medical Exam Vital signs and Labs for Last 24 Hours: Vital Signs Temp Pulse Resp BP Pulse Ox O2 Del Method 05/08/23 12:00 98.4 F 72 18 125/73 97 Room Air 05/08/23 10:32 Room Air 05/08/23 08:00 99.0 F 83 18 125/74 96 Room Air 05/08/23 07:45 98 Room Air 05/08/23 07:33 Room Air 05/08/23 04:00 97.9 F 80 20 109/64 L 94 L Room Air 05/08/23 06:53 Room Air 05/08/23 05:00 Room Air 05/08/23 03:00 Room Air 05/08/23 01:00 Room Air 05/07/23 23:59 97.8 F 85 20 102/64 L 96 Room Air 05/07/23 23:00 Room Air 05/07/23 21:00 Room Air 05/07/23 20:00 Room Air 05/07/23 20:00 98.5 F 80 20 127/79 97 Room Air 05/07/23 17:41 Room Air 05/07/23 17:00 Room Air 05/07/23 15:52 97.8 F 93 H 17 127/64 94 L Room Air 05/07/23 13:53 Room Air Intake and Output 05/07/23 05/08/23 05/08/23 23:59 07:59 15:59 Intake Total 300 / 2912 1260 / 1260 Output Total 0 / 500 Balance 300 / 2412 1260 / 1260 Intake: Intake, Oral Amount 360 / 360 Intake, Total IV Amount 300 / 2912 900 / 900 Dex 5% in 0.45% NaCl 1,000 ml @ 900 / 900 75 mls/hr IV .[id number] [facility] Rx#: [id number] Lactated Ringers 1000ML 1,000 300 / 1300 ml @ 250 mls/hr IV .Q4H [facility] Rx# :[id number] Output: Output, Urine Amount 0 / 0 Other: Number of Unmeasured Voids 1 1 Number of Bowel Movements 1 Weight 85.185 kg Patient Weight 05/08/23 23:59 Weight 85.185 kg Laboratory Results - last 24 hr 05/08/23 05:48: WBC 8.1, RBC 4.96, Hgb 14.3, Hct 43.8, MCV 88.3, MCH 28.7, MCHC 32.5, RDW 12.4, Plt Count 345, MPV 7.7, Neut % (Auto) 65.0, Lymph % (Auto) 20.9, [place] % (Auto) 10.5 H, Eos % (Auto) 2.9, Baso % (Auto) 0.8, Neut # (Auto) 5.3, Lymph # (Auto) 1.7, [place] # (Auto) 0.9, Eos # (Auto) 0.2, Baso # (Auto) 0.1, Sodium 134 L, Potassium 3.3 L, Chloride 94 L, Carbon Dioxide 29, Anion Gap 14.3, BUN 24 H, Creatinine 1.20, Estimated Creat Clear 91, Estimated GFR 65, Est GFR ( Amer) 78, Glucose 105 H, Calcium 8.8, Magnesium 2.2, Total Bilirubin 1.0, AST 28, ALT 26, Alkaline Phosphatase 80, Total Protein 7.2, Albumin 3.8, Globulin 3.4 H, Albumin/Globulin Ratio 1.1 I & O for Labs for Last 24 Hours: Intake & Output 05/05/23 05/06/23 05/07/23 05/08/23 23:59 23:59 23:59 23:59 Intake Total 837 / 837 3635 / 3635 2011 1260 / 1260 Output Total 1950 / 1950 2200 / 2200 500 / 500 Balance -1113 / -1113 1435 / 1435 1512 / 2412 1260 / 1260 Weight 86.381 kg 86.545 kg 84 kg 85.185 kg Constitutional: Present no acute distress and average body habitus Head: Present atraumatic and normocephalic ENT: Present normal exam Comment:: NG in right nare Respiratory: Present normal respiratory effort; Absent rhonchi, stridor, wheezes or crackles Cardiac: Present Reg Rate and Rhythm GI: Present soft and normal bowel sounds; Absent distention or tenderness Extremities: Present normal inspection and full ROM Skin: Present intact; Absent erythema Neuro: Present Grossly Intact, alert, awake, oriented x 3 and moves all extremities Assessment and Plan *Assessment and plan (1) SBO (small bowel obstruction): Status: Acute Category: Medical Code(s): K56.609 - Unspecified intestinal obstruction, unspecified as to partial versus complete obstruction (2) Gastroesophageal reflux disease: Status: Acute Category: Medical Code(s): K21.9 - Gastro-esophageal reflux disease without esophagitis Plan 48-year-old male with concern for small bowel obstruction. Continue with NG and bowel rest. Surgery consulted,
--- NOTE | 2023-05-08 14:25 | PC.NURSE ---
pt. emesis x 1 550 ML.
[2023-05-08 16:00] VITALS: BP 126/74; PULSE 82; RESP 18; TEMP 37.1; O2SAT 98
[2023-05-08 20:00] VITALS: BP 126/82; PULSE 77; RESP 18; TEMP 36.7; O2SAT 98
[2023-05-09] VITALS: BP 122/54; PULSE 86; RESP 18; TEMP 36.9; O2SAT 95
[2023-05-09 04:00] VITALS: BP 120/72; PULSE 89; RESP 18; TEMP 36.4; O2SAT 95; BMI 24.1
[2023-05-09 07:32] VITALS: BP 127/84; PULSE 81; RESP 16; TEMP 36.6; O2SAT 96
[2023-05-09 08:20] LABS: Chloride 95 mmol/L (98-107)
[2023-05-09 08:21] LABS: Potassium 3.3 mmoL/L (3.5-5.1); Sodium 133 mmol/L (136-145)
[2023-05-09 08:23] LABS: Alanine Aminotransferase 26 U/L (12-78); Albumin/Globulin Ratio 1.1 (1.1-1.8); Alkaline Phosphatase 83 U/L (38-126); Anion Gap 13.3 mEq/L (5-15); Aspartate Amino Transferase 30 U/L (17-59); Bilirubin,Total 0.9 mg/dl (0.2-1.3); Blood Urea Nitrogen 16 mg/dl (9-20); Calcium 9.2 mg/dl (8.4-10.2); Carbon Dioxide 28 mmol/L (22.0-30.0); Creatinine Clearance Estimated 99 mL/min (50-200); Estimated Glomerular Filt Rate 71 ml/min (>60); GFR (African American) 86 ML/MIN (>60); Globulin 3.5 g/dL (1.3-3.2); Glucose 112 mg/dl (74-100); Total Protein,Serum 7.5 g/dl (6.3-8.2)
[2023-05-09 08:24] LABS: Magnesium 2.2 mg/dl (1.6-2.3)
--- NOTE | 2023-05-09 09:06 | XR_ITS ---
PROCEDURE INFORMATION: Exam: XR Complete Acute Abdomen Series Including Chest Exam date and time: 05/09/2023 10:10 AM Age: 48 years old Clinical indication: Abdominal pain; Additional info: Vomiting, bowel obstruction TECHNIQUE: Imaging protocol: Radiologic exam. Complete acute abdomen series, including 2 or more views of the abdomen and a single view chest. COMPARISON: CR XR ACUTE ABDOMEN SERIES 05/05/2023 12:01 PM FINDINGS: Lungs: Normal. No consolidation. Pleural spaces: Normal. No pleural effusions. No pneumothorax. Heart/Mediastinum: Normal. No cardiomegaly. Gastrointestinal tract: Abnormally dilated loops of small bowel measuring up to 5 cm in diameter. Compared to the radiographs of 05/07/2023, there has been interval removal of a feeding tube. Small volume residual contrast within the ascending colon. Intraperitoneal space: Normal. No free air. Bones/joints: Normal. No acute fracture. Soft tissues: Normal. IMPRESSION: Abnormally dilated loops of small bowel measuring up to 5 cm in diameter. Persistent, partial small bowel obstruction remains a concern. Compared to the radiographs of 05/07/2023, there has been interval removal of a feeding tube.
--- NOTE | 2023-05-09 09:08 | EXP.ACUTE.PN ---
Subjective *Date: 05/09/23 *Time: 14:21 Interval history: Patient was feeling good yesterday, overnight however has developed nausea and vomiting. Small amount of flatus but no bowel movements overnight. Feeling more discomfort, no zia distention or pain. Remains afebrile. Stable on room air. Ambulating independently Medical Exam Vital signs and Labs for Last 24 Hours: Vital Signs Temp Pulse Resp BP Pulse Ox O2 Del Method 05/09/23 07:32 97.8 F 81 16 127/84 96 Room Air 05/09/23 04:00 97.5 F L 89 18 120/72 95 Room Air 05/09/23 07:00 Room Air 05/09/23 05:00 Room Air 05/09/23 03:00 Room Air 05/09/23 00:00 98.5 F 86 18 122/54 L 95 Room Air 05/09/23 01:00 Room Air 05/08/23 23:00 Room Air 05/08/23 21:00 Room Air 05/08/23 20:00 Room Air 05/08/23 20:00 98.1 F 77 18 126/82 98 Room Air 05/08/23 17:33 Room Air 05/08/23 16:15 Room Air 05/08/23 16:00 98.7 F 82 18 126/74 98 Room Air 05/08/23 12:42 Room Air 05/08/23 12:00 98.4 F 72 18 125/73 97 Room Air 05/08/23 10:32 Room Air Intake and Output 05/08/23 05/09/23 05/09/23 23:59 07:59 15:59 Intake Total 2186 / 5121 1355 / 1355 Output Total 0 / 550 0 / 0 0 / 0 Balance 2186 / 4571 1355 / 1355 0 / 1355 Intake: Intake, Oral Amount 360 / 1720 680 / 680 Intake, Total IV Amount 1826 / 3401 675 / 675 Dex 5% in 0.45% NaCl 1,000 ml @ 1826 / 3401 675 / 675 75 mls/hr IV .[id number] [facility] Rx#: [id number] Output: Output, Urine Amount 0 / 0 0 / 0 0 / 0 Other: Number of Unmeasured Voids 1 1 1 Weight 85.275 kg Patient Weight 05/09/23 23:59 Weight 85.275 kg Laboratory Results - last 24 hr 05/09/23 07:45: Sodium 133 L, Potassium 3.3 L, Chloride 95 L, Carbon Dioxide 28, Anion Gap 13.3, BUN 16 D, Creatinine 1.10, Estimated Creat Clear 99, Estimated GFR 71, Est GFR ( Amer) 86, Glucose 112 H, Calcium 9.2, Magnesium 2.2, Total Bilirubin 0.9, AST 30, ALT 26, Alkaline Phosphatase 83, Total Protein 7.5, Albumin 4.0, Globulin 3.5 H, Albumin/Globulin Ratio 1.1 I & O for Labs for Last 24 Hours: Intake & Output 05/06/23 05/07/23 05/08/23 05/09/23 23:59 23:59 23:59 23:59 Intake Total 3635 / 3635 2011 3946 / 5121 1355 / 1355 Output Total 2200 / 2200 500 / 500 550 / 550 0 / 0 Balance 1435 / 1435 1512 / 2412 3396 / 4571 1355 / 1355 Weight 86.545 kg 84 kg 85.185 kg 85.275 kg Constitutional: Present no acute distress and average body habitus Head: Present atraumatic and normocephalic ENT: Present normal exam Comment:: NG in right nare Respiratory: Present normal respiratory effort; Absent rhonchi, stridor, wheezes or crackles Cardiac: Present Reg Rate and Rhythm GI: Present soft and diminished bowel sounds; Absent distention or tenderness Extremities: Present normal inspection and full ROM Skin: Present intact; Absent erythema Neuro: Present Grossly Intact, alert, awake, oriented x 3 and moves all extremities Assessment and Plan *Assessment and plan (1) SBO (small bowel obstruction): Problem Comment: Partial obstruction versus intermittent complete obstruction (less likely) versus profound/prolonged ileus Status: Acute Category: Medical Code(s): K56.609 - Unspecified intestinal obstruction, unspecified as to partial versus complete obstruction (2) Gastroesophageal reflux disease: Status: Acute Category: Medical Code(s): K21.9 - Gastro-esophageal reflux disease without esophagitis (3) Nausea and vomiting: Status: Acute Category: Medical Code(s): R11.2 - Nausea with vomiting, unspecified Plan 48-year-old male with concern for small bowel obstruction. Continue with NG and bowel rest. Surgery consulted, appreciate their recommendations. Continues to require inpatient management. Problems addressed as follows: Partial SBO Worsening nausea and vomiting -Continue clear liquids
[2023-05-09 11:04] VITALS: BP 138/82; PULSE 79; RESP 16; TEMP 36.6; O2SAT 97
--- NOTE | 2023-05-09 11:52 | EXP.SURG.PN ---
Subjective Narrative: The patient reports 3 episodes of emesis overnight. He states that he did pass some gas around 2:00 in the morning . He currently feels a little bit better . He states that he feels much better when he is sitting up instead of laying down . He feels as if he would do much better if (he) could just sit up and drink just a little bit really slow . With regard to replacing nasogastric tube the patient states that absolutely not...only if asleep in the operating room Exam Data for Last 24 hours Vital signs and Labs for Last 24 Hours: Temp Pulse Resp BP Pulse Ox O2 Del Method 97.9 F 79 16 138/82 97 Room Air 05/09/23 11:04 05/09/23 11:04 05/09/23 11:04 05/09/23 11:04 05/09/23 11:04 05/09/23 11:04 Laboratory Results - last 24 hr 05/09/23 07:45: Sodium 133 L, Potassium 3.3 L, Chloride 95 L, Carbon Dioxide 28, Anion Gap 13.3, BUN 16 D, Creatinine 1.10, Estimated Creat Clear 99, Estimated GFR 71, Est GFR ( Amer) 86, Glucose 112 H, Calcium 9.2, Magnesium 2.2, Total Bilirubin 0.9, AST 30, ALT 26, Alkaline Phosphatase 83, Total Protein 7.5, Albumin 4.0, Globulin 3.5 H, Albumin/Globulin Ratio 1.1 I & O for Last 24 hours: Intake & Output 05/06/23 05/07/23 05/08/23 05/09/23 11:59 11:59 11:59 11:59 Intake Total 1704 / 1704 3643 / 3643 1560 / 1560 4041 / 4041 Output Total 1100 / 1100 2049 / 2049 0 / 0 550 / 550 Balance 604 / 604 1593 / 1593 1560 / 1560 3491 / 3491 Weight 190 lb 12.8 oz 185 lb 7 oz 187 lb 12.8 oz 188 lb Radiology Reports for the Last 24 Hours: IMPRESSION: Abnormally dilated loops of small bowel measuring up to 5 cm in diameter. Persistent, partial small bowel obstruction remains a concern. Compared to the radiographs of 05/07/2023, there has been interval removal of a feeding tube. Constitutional Constitutional: no acute distress *Routine Respiratory Exam Respiratory: Absent respiratory distress *Routine Cardiovascular Exam Cardiovascular: Absent tachycardia *Routine Abdominal Exam Abdominal: Present soft and distended (Moderate distention in epigastrium/mid abdomen) Progress Note: A&P Assessment and plan (1) SBO (small bowel obstruction): Problem details: Partial obstruction versus intermittent complete obstruction (less likely) versus profound/prolonged ileus Status: Acute Assessment and plan: The patient experienced episodic emesis overnight; however, he states that he feels better now . Abdominal films this AM show small bowel distention. Persistent contrast within the colon noted. He does not have significant abdominal pain and does not require emergent intervention; however, exploration for possible partial obstruction still remains a distinct possibility. He wishes to hold off for now and see how things go over the next little bit . He has requested to continue limited clear liquids and states that he will avoid carbonation. He continues to refuse nasogastric replacement. Limited clear liquids without carbonation NPO after midnight Repeat abdominal films in AM (2) Gastroesophageal reflux disease: Status: Acute
[2023-05-09 15:12] VITALS: BP 122/77; PULSE 79; RESP 16; TEMP 36.5; O2SAT 97
--- NOTE | 2023-05-09 17:48 | PC.NURSE ---
TOOK OVER PT AROUND 1600. SINCE THEN, PT HAS HAD NO C/O NA/VO/PAIN. HAS BEEN RESTING IN BED. HAS WALKED HALLD THIS SHIFT. TOLERATED WELL. FAMILY AT BEDSIDE. VSS.
[2023-05-09 20:00] VITALS: BP 125/80; PULSE 85; RESP 18; TEMP 37.1; O2SAT 95
[2023-05-10] VITALS: BP 120/71; PULSE 86; RESP 18; TEMP 36.8; O2SAT 95
[2023-05-10 04:00] VITALS: BP 111/61; PULSE 80; RESP 18; TEMP 36.7; O2SAT 95; BMI 24.3
--- NOTE | 2023-05-10 06:00 | XR_ITS ---
PROCEDURE INFORMATION: Exam: XR Complete Acute Abdomen Series Including Chest Exam date and time: 05/10/2023 7:43 AM Age: 48 years old Clinical indication: Bloating; Additional info: Profound ileus versus partial obstruction TECHNIQUE: Imaging protocol: Radiologic exam. Complete acute abdomen series, including 2 or more views of the abdomen and a single view chest. COMPARISON: CR XR ACUTE ABDOMEN SERIES 05/09/2023 10:10 AM FINDINGS: Lungs: Normal. No consolidation. Pleural spaces: Normal. No pleural effusions. No pneumothorax. Heart/Mediastinum: Normal. No cardiomegaly. Gastrointestinal tract: Contrast in the colon. The colon is decompressed. There a few loops of dilated small bowel that were present on the prior study. This may represent partial obstruction or ileus. Intraperitoneal space: Normal. No free air. Bones/joints: Normal. No acute fracture. Soft tissues: Normal. IMPRESSION: Contrast in the colon. The colon is decompressed. There a few loops of dilated small bowel that were present on the prior study. This may represent partial obstruction or ileus.
[2023-05-10 07:20] LABS: Basophils % 0.5 % (0.1-2.0); Eosinophils # 0.3 K/mm3 (0.0-0.4); Eosinophils % 3.3 % (0.1-12.0); Hematocrit 40.7 % (42.0-52.0); Hemoglobin 13.5 g/dL (14.1-18.0); Lymphocytes # 1.7 K/mm3 (0.7-4.5); Lymphocytes % 22.4 % (10-50); Mean Corpuscular HGB Conc 33.1 g/dL (31.8-35.4); Mean Corpuscular Hemoglobin 29.3 pg (27.0-31.2); Mean Corpuscular Volume 88.7 fl (80-94); Mean Platelet Volume 7.8 fl (7.4-10.4); Monocytes # 0.9 K/mm3 (0.1-1.0); Monocytes % 11.5 % (1.7-9.3); Neutrophils # 4.8 K/mm3 (1.8-7.8); Neutrophils % 62.4 % (37.0-80.0); Platelet Count 333 K/mm3 (142-424); Red Blood Count 4.59 M/mm3 (4.60-6.20); Red Cell Distribution Width 12.4 % (11.5-17.5); White Blood Count 7.7 K/mm3 (4.8-10.8)
[2023-05-10 07:28] LABS: Chloride 95 mmol/L (98-107); Potassium 3.2 mmoL/L (3.5-5.1); Sodium 133 mmol/L (136-145)
[2023-05-10 07:30] LABS: Alanine Aminotransferase 29 U/L (12-78); Aspartate Amino Transferase 35 U/L (17-59); Blood Urea Nitrogen 12 mg/dl (9-20); Creatinine Clearance Estimated 100 mL/min (50-200); Estimated Glomerular Filt Rate 71 ml/min (>60); GFR (African American) 86 ML/MIN (>60)
[2023-05-10 07:31] LABS: Albumin Level 3.5 g/dl (3.5-5.0); Albumin/Globulin Ratio 1.1 (1.1-1.8); Alkaline Phosphatase 75 U/L (38-126); Anion Gap 11.2 mEq/L (5-15); Bilirubin,Total 0.6 mg/dl (0.2-1.3); Calcium 8.8 mg/dl (8.4-10.2); Carbon Dioxide 30 mmol/L (22.0-30.0); Globulin 3.2 g/dL (1.3-3.2); Glucose 105 mg/dl (74-100); Total Protein,Serum 6.7 g/dl (6.3-8.2)
[2023-05-10 07:58] VITALS: BP 126/81; PULSE 76; RESP 16; TEMP 36.6; O2SAT 96
--- NOTE | 2023-05-10 08:16 | EXP.SURG.PN ---
Subjective Narrative: He states he feels okay right now . He reports an episode of emesis last evening at around 9 PM. He is without abdominal pain and feels about the same . He has not had a bowel movement since last evaluation; however, he states that it feels like it is right there . Exam Data for Last 24 hours Vital signs and Labs for Last 24 Hours: Temp Pulse Resp BP Pulse Ox O2 Del Method 97.9 F 76 16 126/81 96 Room Air 05/10/23 07:58 05/10/23 07:58 05/10/23 07:58 05/10/23 07:58 05/10/23 07:58 05/10/23 07:58 Laboratory Results - last 24 hr 05/09/23 07:45: Sodium 133 L, Potassium 3.3 L, Chloride 95 L, Carbon Dioxide 28, Anion Gap 13.3, BUN 16 D, Creatinine 1.10, Estimated Creat Clear 99, Estimated GFR 71, Est GFR ( Amer) 86, Glucose 112 H, Calcium 9.2, Magnesium 2.2, Total Bilirubin 0.9, AST 30, ALT 26, Alkaline Phosphatase 83, Total Protein 7.5, Albumin 4.0, Globulin 3.5 H, Albumin/Globulin Ratio 1.1 05/10/23 06:43: WBC 7.7, RBC 4.59 L, Hgb 13.5 L, Hct 40.7 L, MCV 88.7, MCH 29.3, MCHC 33.1, RDW 12.4, Plt Count 333, MPV 7.8, Neut % (Auto) 62.4, Lymph % (Auto) 22.4, [place] % (Auto) 11.5 H, Eos % (Auto) 3.3, Baso % (Auto) 0.5, Neut # (Auto) 4.8, Lymph # (Auto) 1.7, [place] # (Auto) 0.9, Eos # (Auto) 0.3, Baso # (Auto) 0.0, Sodium 133 L, Potassium 3.2 L, Chloride 95 L, Carbon Dioxide 30, Anion Gap 11.2, BUN 12, Creatinine 1.10, Estimated Creat Clear 100, Estimated GFR 71, Est GFR ( Amer) 86, Glucose 105 H, Calcium 8.8, Total Bilirubin 0.6, AST 35, ALT 29, Alkaline Phosphatase 75, Total Protein 6.7, Albumin 3.5 D, Globulin 3.2, Albumin/Globulin Ratio 1.1 I & O for Last 24 hours: Intake & Output 05/07/23 05/08/23 05/09/23 05/10/23 11:59 11:59 11:59 11:59 Intake Total 3643 / 3643 1560 / 1560 4425 / 4425 1035 / 1035 Output Total 2049 / 2049 0 / 0 550 / 550 0 / 0 Balance 1593 / 1593 1560 / 1560 3875 / 3875 1035 / 1035 Weight 185 lb 7 oz 187 lb 12.8 oz 188 lb 189 lb 2 oz Radiology Reports for the Last 24 Hours: IMPRESSION: Contrast in the colon. The colon is decompressed. There a few loops of dilated small bowel that were present on the prior study. This may represent partial obstruction or ileus. Constitutional Constitutional: no acute distress *Routine Respiratory Exam Respiratory: Absent respiratory distress *Routine Cardiovascular Exam Cardiovascular: Absent tachycardia *Routine Abdominal Exam Abdominal: Present soft and distended (Moderate distention in epigastrium/mid abdomen) Progress Note: A&P Assessment and plan (1) SBO (small bowel obstruction): Problem details: Partial obstruction versus intermittent complete obstruction (less likely) versus profound/prolonged ileus Status: Acute Assessment and plan: The patient has shown no evidence of meaningful improvement; however, he has remained afebrile with stable/normal vital signs and continues to have a fairly benign exam. He does not require emergent intervention; however, the likelihood of ultimately requiring operative management seems moderately high. I have discussed the risks and benefits of exploratory laparotomy, adhesiolysis, possible bowel resection, and possible ostomy. He states that he would like to go really slow today, give it a little bit more time, and discuss everything with Dr. Castillo in the morning .
[2023-05-10 11:07] VITALS: BP 115/72; PULSE 77; RESP 16; TEMP 36.6; O2SAT 98
[2023-05-10 15:13] VITALS: BP 113/73; PULSE 81; RESP 16; TEMP 36.8; O2SAT 97
--- NOTE | 2023-05-10 15:44 | EXP.ACUTE.PN ---
Subjective *Date: 05/10/23 *Time: 15:44 Interval history: Emesis x1 overnight. Denies any abdominal pain or distention however. Stable on room air. Remains afebrile. Ambulating independently. Tolerating clear liquids. No bowel movement in the past 24 hours. Medical Exam Vital signs and Labs for Last 24 Hours: Vital Signs Temp Pulse Resp BP Pulse Ox O2 Del Method 05/10/23 15:13 98.3 F 81 16 113/73 97 Room Air 05/10/23 14:34 Room Air 05/10/23 12:42 Room Air 05/10/23 11:07 97.9 F 77 16 115/72 98 Room Air 05/10/23 10:40 Room Air 05/10/23 09:00 Room Air 05/10/23 08:00 Room Air 05/10/23 07:58 97.9 F 76 16 126/81 96 Room Air 05/10/23 04:00 98.1 F 80 18 111/61 95 Room Air 05/10/23 06:54 Room Air 05/10/23 05:00 Room Air 05/10/23 03:00 Room Air 05/10/23 01:00 Room Air 05/09/23 23:00 Room Air 05/09/23 21:00 Room Air 05/09/23 20:00 Room Air 05/10/23 00:00 98.2 F 86 18 120/71 95 Room Air 05/09/23 20:00 98.7 F 85 18 125/80 95 Room Air 05/09/23 18:39 Room Air 05/09/23 16:52 Room Air Intake and Output 05/09/23 05/10/23 05/10/23 23:59 07:59 15:59 Intake Total 240 / 2774 615 / 975 360 / 975 Output Total 0 / 0 0 / 0 0 / 0 Balance 240 / 2774 615 / 975 360 / 975 Intake: Intake, Oral Amount 240 / 1340 240 / 600 360 / 600 Intake, Total IV Amount 375 / 375 Dex 5% in 0.45% NaCl 1,000 ml @ 375 / 375 75 mls/hr IV .[id number] [facility] Rx#: [id number] Output: Output, Urine Amount 0 / 0 0 / 0 0 / 0 Other: Number of Unmeasured Voids 1 1 1 Number of Bowel Movements 1 Weight 85.786 kg Patient Weight 05/10/23 23:59 Weight 85.786 kg Laboratory Results - last 24 hr 05/10/23 06:43: WBC 7.7, RBC 4.59 L, Hgb 13.5 L, Hct 40.7 L, MCV 88.7, MCH 29.3, MCHC 33.1, RDW 12.4, Plt Count 333, MPV 7.8, Neut % (Auto) 62.4, Lymph % (Auto) 22.4, [place] % (Auto) 11.5 H, Eos % (Auto) 3.3, Baso % (Auto) 0.5, Neut # (Auto) 4.8, Lymph # (Auto) 1.7, [place] # (Auto) 0.9, Eos # (Auto) 0.3, Baso # (Auto) 0.0, Sodium 133 L, Potassium 3.2 L, Chloride 95 L, Carbon Dioxide 30, Anion Gap 11.2, BUN 12, Creatinine 1.10, Estimated Creat Clear 100, Estimated GFR 71, Est GFR ( Amer) 86, Glucose 105 H, Calcium 8.8, Total Bilirubin 0.6, AST 35, ALT 29, Alkaline Phosphatase 75, Total Protein 6.7, Albumin 3.5 D, Globulin 3.2, Albumin/Globulin Ratio 1.1 I & O for Labs for Last 24 Hours: Intake & Output 05/07/23 05/08/23 05/09/23 05/10/23 23:59 23:59 23:59 23:59 Intake Total 2011 3946 / 5121 215 / 2774 975 / 975 Output Total 500 / 500 550 / 550 0 / 0 0 / 0 Balance 1512 / 2412 3396 / 4571 215 / 2774 975 / 975 Weight 84 kg 85.185 kg 85.275 kg 85.786 kg Constitutional: Present no acute distress and average body habitus Head: Present atraumatic and normocephalic ENT: Present normal exam Comment:: NG in right nare Respiratory: Present normal respiratory effort; Absent rhonchi, stridor, wheezes or crackles Cardiac: Present Reg Rate and Rhythm GI: Present soft and diminished bowel sounds; Absent distention or tenderness Extremities: Present normal inspection and full ROM Skin: Present intact; Absent erythema Neuro: Present Grossly Intact, alert, awake, oriented x 3 and moves all extremities Assessment and Plan *Assessment and plan (1) SBO (small bowel obstruction): Problem Comment: Partial obstruction versus intermittent complete obstruction (less likely) versus profound/prolonged ileus Status: Acute Category: Medical Code(s): K56.609 - Unspecified intestinal obstruction, unspecified as to partial versus complete obstruction (2) Gastroesophageal reflux disease: Status: Acute Category: Medical Code(s): K21.9 - Gastro-esophageal reflux disease without esophagitis (3) Nausea and vomiting: Status: Acute Category: Medical Code(s): R11.2 - Nausea w
--- NOTE | 2023-05-10 17:06 | PC.NURSE ---
A&OX4. TOLERATING RA WELL. PT HAS HAD NO C/O PAIN/NA/VO THUS FAR THIS SHIFT. PT HAS BEEN UP WALKING HALLS FREQUENTLY. DID HAVE X1 SMALL LIQUID BM AT 1230. TOLERATING SIPS OF CLEARS. FAMILY AT BEDSIDE. NO NEEDS OR C/O AT THIS TIME, VSS.
[2023-05-10 20:00] VITALS: BP 124/75; PULSE 89; RESP 18; TEMP 36.7; O2SAT 97
[2023-05-11] VITALS (23 sets, daily range): BP systolic 112–159; BP diastolic 64–95; PULSE 74–104; RESP 14–19; TEMP 36.2–43; O2SAT 95–98; BMI 24.3
--- NOTE | 2023-05-11 05:57 | PC.NURSE ---
Patient LCTA, VSS, walking laps around unit. Patient states has watery BM with couple small pieces of feces in it. Denies any belly discomfort. Patient states is just anxious to move forward with situation. Patient rested throughout night with eyes closed. Bed at lowest level; call light in reach.
--- NOTE | 2023-05-11 06:00 | XR_ITS ---
PROCEDURE INFORMATION: Exam: XR Complete Acute Abdomen Series Including Chest Exam date and time: 05/11/2023 6:01 AM Age: 48 years old Clinical indication: Abdominal pain; Additional info: Partial obstruction versus profound ileus TECHNIQUE: Imaging protocol: Radiologic exam. Complete acute abdomen series, including 2 or more views of the abdomen and a single view chest. COMPARISON: CR XR ACUTE ABDOMEN SERIES 05/10/2023 7:43 AM FINDINGS: Lungs: Normal. No consolidation. Pleural spaces: Normal. No pleural effusions. No pneumothorax. Heart/Mediastinum: Normal. No cardiomegaly. Gastrointestinal tract: Normal. No bowel dilation. Intraperitoneal space: Normal. No free air. Bones/joints: Normal. No acute fracture. Soft tissues: Normal. IMPRESSION: No acute findings.
--- NOTE | 2023-05-11 06:07 | EXP.SURG.PN ---
Subjective Narrative: Patient had developed episodes of emesis overnight abdominal pain over the past several days. Acute abdominal series showing some small bowel dilatation. Patient refused nasogastric tube placement. At this point he denies abdominal pain but states that he is having cramping and gas pain . He does state that he had a liquid bowel movement last night. Exam Data for Last 24 hours Vital signs and Labs for Last 24 Hours: Temp Pulse Resp BP Pulse Ox O2 Del Method 98.3 F 74 19 115/64 97 Room Air 05/11/23 04:00 05/11/23 04:00 05/11/23 04:00 05/11/23 04:00 05/11/23 04:00 05/11/23 05:00 Laboratory Results - last 24 hr 05/10/23 06:43: WBC 7.7, RBC 4.59 L, Hgb 13.5 L, Hct 40.7 L, MCV 88.7, MCH 29.3, MCHC 33.1, RDW 12.4, Plt Count 333, MPV 7.8, Neut % (Auto) 62.4, Lymph % (Auto) 22.4, [place] % (Auto) 11.5 H, Eos % (Auto) 3.3, Baso % (Auto) 0.5, Neut # (Auto) 4.8, Lymph # (Auto) 1.7, [place] # (Auto) 0.9, Eos # (Auto) 0.3, Baso # (Auto) 0.0, Sodium 133 L, Potassium 3.2 L, Chloride 95 L, Carbon Dioxide 30, Anion Gap 11.2, BUN 12, Creatinine 1.10, Estimated Creat Clear 100, Estimated GFR 71, Est GFR ( Amer) 86, Glucose 105 H, Calcium 8.8, Total Bilirubin 0.6, AST 35, ALT 29, Alkaline Phosphatase 75, Total Protein 6.7, Albumin 3.5 D, Globulin 3.2, Albumin/Globulin Ratio 1.1 I & O for Last 24 hours: Intake & Output 05/08/23 05/09/23 05/10/23 05/11/23 11:59 11:59 11:59 11:59 Intake Total 1560 / 1560 4425 / 4425 1035 / 1035 480 / 480 Output Total 0 / 0 550 / 550 0 / 0 0 / 0 Balance 1560 / 1560 3875 / 3875 1035 / 1035 480 / 480 Weight 187 lb 12.8 oz 188 lb 189 lb 2 oz 189 lb 8 oz *Routine Abdominal Exam Abdominal: Present distended Comments: No appreciable tenderness. He does have distention Progress Note: A&P Assessment and plan (1) SBO (small bowel obstruction): Status: Acute Assessment and plan: X-rays reveal persistent small bowel gas distention with air-fluid levels. There is contrast throughout the collapsed colon. Consistent with partial small bowel obstruction. Plan for operative intervention. (2) Gastroesophageal reflux disease: Status: Acute (3) Nausea and vomiting: Status: Acute
[2023-05-11 07:24] LABS: Chloride 97 mmol/L (98-107); Sodium 136 mmol/L (136-145)
[2023-05-11 07:25] LABS: Potassium 3.4 mmoL/L (3.5-5.1)
[2023-05-11 07:27] LABS: Alanine Aminotransferase 34 U/L (12-78); Albumin/Globulin Ratio 1.1 (1.1-1.8); Alkaline Phosphatase 91 U/L (38-126); Anion Gap 16.4 mEq/L (5-15); Aspartate Amino Transferase 50 U/L (17-59); Bilirubin,Total 0.7 mg/dl (0.2-1.3); Blood Urea Nitrogen 8 mg/dl (9-20); Calcium 9.2 mg/dl (8.4-10.2); Carbon Dioxide 26 mmol/L (22.0-30.0); Creatinine Clearance Estimated 100 mL/min (50-200); Estimated Glomerular Filt Rate 71 ml/min (>60); GFR (African American) 86 ML/MIN (>60); Globulin 3.5 g/dL (1.3-3.2); Glucose 96 mg/dl (74-100); Total Protein,Serum 7.5 g/dl (6.3-8.2)
--- NOTE | 2023-05-11 08:53 | P.PNANES_ITS ---
[facility] Disclaimer: The information contained in this section may have been updated after the patient was seen, as this information can be updated by other users. Medical History Appendicitis Surgical History History of appendectomy Family History Other No significant family history Social History Smoking Status: Never smoker alcohol intake: never substance use type: denies use current occupational status: employed Travel in the last 8 weeks: None household members: significant other housing: house [facility] Anesthesia Checklist Patient Identification Patient Identification: Arm Band and Verbal (Name & ) Structural Data Admitted From: Inpatient Planned Operative Procedure/s: Ex. lap Consent for Planned Operative Procedure(s) Verified: Yes Verified Documents: Surgical Consent NPO Status Verified Time NPO: 00:00 Chart Verification Results Verified: CBC and BMP Additional verifications Anesthesia Reactions: No Airway Assessment Mallampati Score:: Class II C-Spine Mobility Assessed: Yes TMJ Mobility Assessed: Yes Dentition: Good Dentition Neurological Assessment Level of Consciousness: Awake Hx Seizures: No Numbness or tingling in extremities: No Anesthesia Plan Anesthesia Risk discussed: Yes ASA Class: I Anesthesia Type: General
--- NOTE | 2023-05-11 10:53 | EXP.OP.NOTE ---
Date of procedure: 05/11/23 Pre-op Diagnosis:: Small bowel obstruction Post-op Diagnosis:: Same Procedure performed:: Diagnostic laparoscopy, laparoscopic lysis of adhesions and freeing of intestinal obstruction, resection of infarcted colonic epiploic appendagitis Surgeon:: Glenn Castillo MD HEAT AND FROST INSULATOR:: Kodi Aguiar Anesthesia: GETMatilda Estimated blood loss (mL): 15 Clinical Note:: Patient is a 48-year-old male who has a prior surgical history of ruptured appendicitis apparently 20 years ago taken care of at outside facility. In the evening of 05/03/2023 patient had onset of significant abdominal pain followed by multiple episodes of vomiting and presented to the emergency department on 05/04/2023 at which time he had a mild leukocytosis. CT scan of the abdomen and pelvis revealed findings of multiple fluid-filled loops of small bowel measuring up to 2.4 cm in diameter with distal bowel relatively decompressed. Concern was for high-grade partial or complete obstruction. He was admitted as an inpatient and managed initially nonoperatively for bowel obstruction. Patient did have waxing and waning symptoms. He ultimately underwent small bowel follow-through which showed some dilated small bowel but contrast through to the rectosigmoid. Follow-up films the following day showed resolution of bowel distention with contrast and decompressed colon. Nasogastric tube was removed. Patient was started on clear liquid diet on 05/08/2023. However, he later that evening developed abdominal cramping and had several episodes of emesis. Follow-up x-rays revealed abnormally dilated loops of small bowel measuring up to 5 cm in diameter. Persistent, partial small bowel obstruction remains a concern. Due to patient's failure of management of nonoperative management of bowel obstruction plan was made for operative intervention. Operative findings:: Patient had distal high-grade partial obstruction secondary to acute inflammatory periappendiceal epiploic fat pedicle which had infarcted over 2 loops of small bowel creating very high-grade partial obstruction with decompression distally and distention proximally. Once this was freed the bowel appeared to be viable with no evidence of any compromise necessitating resection. Operative note:: Patient was taken to the operating room. He was given preoperative intravenous antibiotics. In the operating room he was placed in a supine position. General anesthesia was induced via endotracheal tube. Abdomen was prepped and draped in the standard surgical fashion. Gooden catheter was placed. Through a tiny 1 to 2 mm left subcostal incision Veress needle was carefully inserted. CO2 pneumoperitoneum was achieved to 15 mmHg. 5 mm trocar was inserted inferior to the umbilicus. Intraperitoneal contents were visualized. There were multiple loops of dilated small bowel consistent with small bowel obstruction. There was reactive transudative fluid in the abdomen secondary to obstruction. Additional 5 mm trocar was inserted in the suprapubic location. Surveillance was carried out and there was noted to be in the right lower quadrant a inflammatory band of tissue originating from the cecum across the distal small bowel, across to loops of small bowel, creating high-grade partial obstruction with small bowel dilated proximal to this and decompressed distally. Additional 5 mm trocar was inserted in the epigastrium. This area was carefully grasped and able to be dissected free from the small bowel freeing the intestinal obstruction. This appeared to be infarcted tissue and initially was felt to be significant residual appendix. Dissection was carried out. Ultimately the tip of the cecum was identified and there was no evidence of residual appendix but this appeared to be most likely a long pedicle of epiploic pericolonic fat infarcted and creating high-grade partial obstruction. Decision was made to resect this. The 5 mm infraumbilical trocar was repl
--- NOTE | 2023-05-11 10:59 | EXP.ANES.I ---
[facility] Anesthesia Record Part I Anesthesia Record I Intake, IV Amount: 1,200 Hydration: Adequate Estimated blood loss (mL): 10 Urine output (mL): 20 Blood Products used (#): none Blood Pressure: 132/84 SaO2: 97 Pulse Rate: 90 Airway Patency: Patent Respiratory Rate: 16 Temperature: 97.2 F Patient is:: Drowsy and Stable Stable to PACU at:: 10:55
--- NOTE | 2023-05-11 11:02 | XR_ITS ---
FINAL REPORT CLINICAL HISTORY: NG placement COMPARISON: 05/04/2023 FINDINGS: NG tube is present with the tip located in the stomach. Sidehole is at the GE junction. The heart size is normal. The mediastinum is normal. The lungs are underinflated. There is no focal infiltrate or edema. There are no pleural effusions. There is no pneumothorax. There is no osseous abnormality. IMPRESSION: NG tube present. Underinflation of the lungs without acute cardiopulmonary process. Reviewed, Interpreted and Dictated by Hever Ozuna MD Transcribed by Alyssa Baird Authenticated and [facility]
--- NOTE | 2023-05-11 13:47 | EXP.ACUTE.PN ---
Subjective *Date: 05/11/23 *Time: 15:18 Interval history: No improvement in abdominal symptoms. Imaging this morning showing increased dilation of small bowel. Afebrile and hemodynamically stable. Plan is for surgery today. NPO. Seen and examined before surgery. Medical Exam Vital signs and Labs for Last 24 Hours: Vital Signs Temp Pulse Pulse Resp BP BP Pulse Ox 05/11/23 11:35 87 18 150/95 H 98 05/11/23 11:25 85 17 150/88 H 97 05/11/23 11:15 85 17 151/95 H 97 05/11/23 11:05 89 17 141/84 H 97 05/11/23 11:52 97.2 F L 92 H 18 132/84 97 05/11/23 08:00 98.1 F 83 18 121/71 97 05/11/23 06:59 05/11/23 05:00 05/11/23 04:00 98.3 F 74 19 115/64 97 05/11/23 03:00 05/11/23 01:00 05/11/23 00:00 98.5 F 80 18 112/67 96 05/10/23 23:00 05/10/23 21:00 05/10/23 20:00 05/10/23 20:00 98.0 F 89 18 124/75 97 05/10/23 18:47 05/10/23 16:54 05/10/23 15:13 98.3 F 81 16 113/73 97 05/10/23 14:34 05/11/23 10:59 97.2 F L 90 16 132/84 O2 Del Method 05/11/23 11:35 Room Air 05/11/23 11:25 Room Air 05/11/23 11:15 Room Air 05/11/23 11:05 Room Air 05/11/23 11:52 Room Air 05/11/23 08:00 Room Air 05/11/23 06:59 Room Air 05/11/23 05:00 Room Air 05/11/23 04:00 Room Air 05/11/23 03:00 Room Air 05/11/23 01:00 Room Air 05/11/23 00:00 Room Air 05/10/23 23:00 Room Air 05/10/23 21:00 Room Air 05/10/23 20:00 Room Air 05/10/23 20:00 Room Air 05/10/23 18:47 Room Air 05/10/23 16:54 Room Air 05/10/23 15:13 Room Air 05/10/23 14:34 Room Air 05/11/23 10:59 Intake and Output 05/10/23 05/11/23 05/11/23 23:59 07:59 15:59 Intake Total 120 / 1095 900 / 2100 1200 / 2099 Output Total 0 / 0 0 / 0 0 / 0 Balance 120 / 1095 / 2100 1199 Intake: Intake, Oral Amount 120 / 720 Intake, Total IV Amount 900 / 2099 1199 / 2099 Dex 5% in 0.45% NaCl 1,000 ml @ 900 / 900 75 mls/hr IV .[id number] [facility] Rx#: [id number] Output: Output, Urine Amount 0 / 0 0 / 0 0 / 0 Other: Number of Voids 0 Number of Unmeasured Voids 1 1 Weight 85.956 kg Patient Weight 05/11/23 23:59 Weight 85.956 kg Laboratory Results - last 24 hr 05/11/23 06:50: Sodium 136, Potassium 3.4 L, Chloride 97 L, Carbon Dioxide 26, Anion Gap 16.4 H, BUN 8 L D, Creatinine 1.10, Estimated Creat Clear 100, Estimated GFR 71, Est GFR ( Amer) 86, Glucose 96, Calcium 9.2, Total Bilirubin 0.7, AST 50 D, ALT 34, Alkaline Phosphatase 91, Total Protein 7.5, Albumin 4.0 D, Globulin 3.5 H, Albumin/Globulin Ratio 1.1 I & O for Labs for Last 24 Hours: Intake & Output 05/08/23 05/09/23 05/10/23 05/11/23 23:59 23:59 23:59 23:59 Intake Total 3946 / 5121 2159 / 2774 109 / 1094 Output Total 550 / 550 0 / 0 0 / 0 0 / 0 Balance 3396 / 4571 2159 / 2774 1095 / 1095 2099 Weight 85.185 kg 85.275 kg 85.786 kg 85.956 kg Constitutional: Present no acute distress and average body habitus Head: Present atraumatic and normocephalic ENT: Present normal exam Comment:: NG in right nare Respiratory: Present normal respiratory effort; Absent rhonchi, stridor, wheezes or crackles Cardiac: Present Reg Rate and Rhythm GI: Present soft, tenderness (Minimal, diffuse) and diminished bowel sounds; Absent distention Extremities: Present normal inspection and full ROM Skin: Present intact; Absent erythema Neuro: Present Grossly Intact, alert, awake, oriented x 3 and moves all extremities Assessment and Plan *Assessment and plan (1) SBO (small bowel obstruction): Status: Acute Category: Medical Code(s): K56.609 - Unspecified intestinal obstruction, unspecified as to partial versus complete obstruction (2) Gastroesophageal reflux disease: Status: Acute Category: Medical Code(s): K21.9 - Gastro-esophageal reflux disease without esopha
--- NOTE | 2023-05-11 14:05 | P.PNANES_ITS ---
[facility] Anesthesia Record Part II Anesthesia Record Part II Discharge Time: 11:52 Destination: Medical Surgical Department PACU nurse assessment reviewed?: Yes Patient Condition:: Good Anesthesia Complications:: None Swallowing reflex intact?: Yes Airway Patency: Patent Cyanosis?: No Blood Pressure: 132/84 SaO2: 97 Respiratory Rate: 18 Pulse Rate: 92 Temperature: 97.2 F Mental Status: Alert & Oriented Pain level:: 0 Nausea and/or vomitting:: None Intake, IV Amount: 0 Hydration: Adequate
[2023-05-11 14:06] LABS: Microscopic,Cath URINE MICROSCOPIC (MICROSCOPIC)
[2023-05-11 14:09] LABS: Appearance,Urine/Cath CLEAR (Clear); Blood, Urine/Cath TRACE-I (Negative); Color,Urine/Cath YELLOW (Yellow); Glucose,Urine/Cath (UA) Negative (Negative); Ketones,Urine/Cath 3+ (Negative); Leukocyte Esterase,Cath Negative (Negative); Nitrate,Cath Negative (Negative); PH,Urine/Cath 6.5 (5.0-8.5); Protein,Urine/Cath Negative (Negative); Specific Gravity, Urine/Cath 1.015 (1.005-1.030); Urobilinogen,Cath 0.2 EU/dl (0.2)
[2023-05-11 14:17] LABS: Bilirubin,Cath 1+ (Negative)
[2023-05-11 14:23] LABS: Bacteria,Urine/Cath TRACE /lpf; RBC,Urine/Cath Occasional # /hpf (0-3); Squamous Epithelial Ur./Cath Occasional #/hpf (0-5); WBC,Urine/Cath Occasional #/hpf (0-3)
--- NOTE | 2023-05-11 17:03 | PC.NURSE ---
Patient went to OR today. Patient returned wit NG tube. Patient has tolerated tube to low wall suction. Post op vitals stable
--- NOTE | 2023-05-11 18:30 | PC.NURSE ---
pt and pt stated they had reported NGT not acting right since 1500 to the daysndft nurse. 1920 I assessed the pt complaints, NGT was found at 20cm, unhooked from LWS, displaced nasal secure, with discomfort of the throat noted. 193 NGT was advanced per pt approval and secured at 55, KUB obtained - LWS at 80 denies pain. D5 order clarified/DC'd with hospitalist, new order for LR received. post op lap incision sites - site under umbilicus has scant serosanguineous drainage noted. 1800 charge at bedside.
--- NOTE | 2023-05-11 19:44 | XR_ITS ---
PROCEDURE INFORMATION: Exam: XR Abdomen Exam date and time: 05/11/2023 8:04 PM Age: 48 years old Clinical indication: Device placement; Non-vascular device; Other: Ng tube placement. TECHNIQUE: Imaging protocol: Radiologic exam of the abdomen. Views: Frontal supine view of the abdomen. 1 View. Total images: 1 COMPARISON: CR XR ACUTE ABDOMEN SERIES 05/11/2023 6:01 AM FINDINGS: Tubes, catheters and devices: Tip the NG tube in the proximal stomach with the side port just above the GE junction. Further advancement is advised. Lungs: Lung bases are clear. Gastrointestinal tract: Multiple gas-filled distended segments of small bowel in keeping with known partial bowel obstruction. Minor residual oral contrast within the colon. Bones/joints: Unremarkable. Soft tissues: Peritoneal fascial planes are maintained. IMPRESSION: 1. Tip of the NG tube in the stomach. Side port projects above the GE junction, recommend further distal advancement. 2. Ongoing findings of partial small bowel obstruction.
[2023-05-12] VITALS: BP 134/81; PULSE 90; RESP 18; TEMP 36.8; O2SAT 97
[2023-05-12 04:00] VITALS: BP 130/80; PULSE 95; RESP 18; TEMP 36.9; O2SAT 96; BMI 24.3
[2023-05-12 07:03] LABS: Basophils # 0.1 K/mm3 (0-0.2); Basophils % 0.5 % (0.1-2.0); Eosinophils # 0.2 K/mm3 (0.0-0.4); Eosinophils % 1.9 % (0.1-12.0); Hematocrit 38.9 % (42.0-52.0); Hemoglobin 12.9 g/dL (14.1-18.0); Lymphocytes # 2.2 K/mm3 (0.7-4.5); Mean Corpuscular HGB Conc 33.1 g/dL (31.8-35.4); Mean Corpuscular Hemoglobin 29.3 pg (27.0-31.2); Mean Corpuscular Volume 88.3 fl (80-94); Mean Platelet Volume 8.1 fl (7.4-10.4); Monocytes % 9.3 % (1.7-9.3); Neutrophils # 7.4 K/mm3 (1.8-7.8); Neutrophils % 68.2 % (37.0-80.0); Platelet Count 369 K/mm3 (142-424); Red Blood Count 4.41 M/mm3 (4.60-6.20); Red Cell Distribution Width 12.4 % (11.5-17.5); White Blood Count 10.8 K/mm3 (4.8-10.8)
[2023-05-12 07:06] LABS: Chloride 100 mmol/L (98-107); Sodium 135 mmol/L (136-145)
[2023-05-12 07:09] LABS: Alanine Aminotransferase 30 U/L (12-78); Albumin Level 3.4 g/dl (3.5-5.0); Albumin/Globulin Ratio 1.1 (1.1-1.8); Alkaline Phosphatase 55 U/L (38-126); Aspartate Amino Transferase 46 U/L (17-59); Bilirubin,Total 0.8 mg/dl (0.2-1.3); Blood Urea Nitrogen 9 mg/dl (9-20); Carbon Dioxide 22 mmol/L (22.0-30.0); Creatinine Clearance Estimated 122 mL/min (50-200); Estimated Glomerular Filt Rate 90 ml/min (>60); GFR (African American) 109 ML/MIN (>60); Globulin 3.1 g/dL (1.3-3.2); Total Protein,Serum 6.5 g/dl (6.3-8.2)
[2023-05-12 07:10] LABS: Calcium 8.7 mg/dl (8.4-10.2); Glucose 82 mg/dl (74-100)
--- NOTE | 2023-05-12 07:45 | EXP.SURG.PN ---
Subjective Patient reports: no new complaints Narrative: No major complaints. Has had some hiccups. Ambulating extensively. Minimal NG output. Exam Data for Last 24 hours Vital signs and Labs for Last 24 Hours: Temp Pulse Resp BP Pulse Ox O2 Del Method 98.5 F 95 H 18 130/80 96 Room Air 05/12/23 04:00 05/12/23 04:00 05/12/23 04:00 05/12/23 04:00 05/12/23 04:00 05/12/23 06:12 Laboratory Results - last 24 hr 05/11/23 10:16: Urine Color Yellow, Urine Appearance Clear, Urine pH 6.5, Ur Specific [place] 1.015, Urine Protein Negative, Urine Glucose (UA) Negative, Urine Ketones 3+, Urine Blood Trace-i, Urine Nitrate Negative, Urine Bilirubin 1+ A, Urine Urobilinogen 0.2, Ur Leukocyte Esterase Negative, Urine RBC Occasional, Urine WBC Occasional, Ur Squamous Epith Cells Occasional, Urine Bacteria Trace 05/12/23 06:35: WBC 10.8 D, RBC 4.41 L, Hgb 12.9 L, Hct 38.9 L, MCV 88.3, MCH 29.3, MCHC 33.1, RDW 12.4, Plt Count 369, MPV 8.1, Neut % (Auto) 68.2, Lymph % (Auto) 20.0, [place] % (Auto) 9.3, Eos % (Auto) 1.9, Baso % (Auto) 0.5, Neut # (Auto) 7.4, Lymph # (Auto) 2.2, [place] # (Auto) 1.0, Eos # (Auto) 0.2, Baso # (Auto) 0.1, Sodium 135 L, Potassium 4.0, Chloride 100, Carbon Dioxide 22, Anion Gap 17.0 H, BUN 9, Creatinine 0.90, Estimated Creat Clear 122, Estimated GFR 90, Est GFR ( Amer) 109 D, Glucose 82, Calcium 8.7, Total Bilirubin 0.8, AST 46, ALT 30, Alkaline Phosphatase 55, Total Protein 6.5, Albumin 3.4 L D, Globulin 3.1, Albumin/Globulin Ratio 1.1 I & O for Last 24 hours: Intake & Output 05/09/23 05/10/23 05/11/23 05/12/23 11:59 11:59 11:59 11:59 Intake Total 4425 / 4425 1035 / 1035 2580 / 2580 846 / 846 Output Total 550 / 550 0 / 0 0 / 0 510 / 510 Balance 3875 / 3875 1035 / 1035 2580 / 2580 336 / 336 Weight 188 lb 189 lb 2 oz 189 lb 8 oz 189 lb 6 oz *Routine Abdominal Exam Comments: Slightly distended. Progress Note: A&P Assessment and plan (1) SBO (small bowel obstruction): Status: Acute Assessment and plan: DC NG tube. Limit to ice chips. (2) Gastroesophageal reflux disease: Status: Acute (3) Nausea and vomiting: Status: Acute
[2023-05-12 08:00] VITALS: BP 145/90; PULSE 93; RESP 18; TEMP 36.4; O2SAT 97
--- NOTE | 2023-05-12 10:22 | EXP.PN ---
Subjective *Date: 05/12/23 *Time: 09:00 Interval history: No acute events overnight. NGT was discontinued this morning. No nausea or vomiting. He had a bowel movement before his surgery yesterday but none since then. Exam Data for Last 24 hours Vital signs and Labs for Last 24 Hours: Temp Pulse Resp BP Pulse Ox O2 Del Method 97.6 F 93 H 18 145/90 H 97 Room Air 05/12/23 08:00 05/12/23 08:00 05/12/23 08:00 05/12/23 08:00 05/12/23 08:00 05/12/23 08:00 Laboratory Results - last 24 hr 05/11/23 10:16: Urine Color Yellow, Urine Appearance Clear, Urine pH 6.5, Ur Specific [place] 1.015, Urine Protein Negative, Urine Glucose (UA) Negative, Urine Ketones 3+, Urine Blood Trace-i, Urine Nitrate Negative, Urine Bilirubin 1+ A, Urine Urobilinogen 0.2, Ur Leukocyte Esterase Negative, Urine RBC Occasional, Urine WBC Occasional, Ur Squamous Epith Cells Occasional, Urine Bacteria Trace 05/12/23 06:35: WBC 10.8 D, RBC 4.41 L, Hgb 12.9 L, Hct 38.9 L, MCV 88.3, MCH 29.3, MCHC 33.1, RDW 12.4, Plt Count 369, MPV 8.1, Neut % (Auto) 68.2, Lymph % (Auto) 20.0, [place] % (Auto) 9.3, Eos % (Auto) 1.9, Baso % (Auto) 0.5, Neut # (Auto) 7.4, Lymph # (Auto) 2.2, [place] # (Auto) 1.0, Eos # (Auto) 0.2, Baso # (Auto) 0.1, Sodium 135 L, Potassium 4.0, Chloride 100, Carbon Dioxide 22, Anion Gap 17.0 H, BUN 9, Creatinine 0.90, Estimated Creat Clear 122, Estimated GFR 90, Est GFR ( Amer) 109 D, Glucose 82, Calcium 8.7, Total Bilirubin 0.8, AST 46, ALT 30, Alkaline Phosphatase 55, Total Protein 6.5, Albumin 3.4 L D, Globulin 3.1, Albumin/Globulin Ratio 1.1 I & O for Last 24 hours: Intake & Output 05/09/23 05/10/23 05/11/23 05/12/23 23:59 23:59 23:59 23:59 Intake Total 2159 / 2774 1095 / 1095 2160 / 2160 786 / 786 Output Total 0 / 0 0 / 0 460 / 460 50 / 50 Balance 2159 / 2774 1095 / 1095 1700 / 1700 736 / 736 Weight 85.275 kg 85.786 kg 85.956 kg 85.899 kg Constitutional Constitutional: no acute distress *Routine HEENT Exam Head: Present normocephalic Eye: Present EOMI and PERRL ENT: Present mucous membranes moist *Routine Neck Exam Neck: Present supple; Absent lymphadenopathy *Routine Respiratory Exam Respiratory: Present CTA bilaterally *Routine Cardiovascular Exam Cardiovascular: Present RRR *Routine Abdominal Exam Abdominal: Present soft and normoactive bowel sounds; Absent rebound or guarding Comments: dressings c/d/i *Routine Extremities Exam Extremities: Absent cyanosis, clubbing or edema *Routine Skin Exam Skin: Present warm; Absent rash *Routine Neurological Exam Neurological: Present alert and oriented X3 Assessment and Plan *Assessment and plan (1) SBO (small bowel obstruction): Status: Acute Category: Medical Code(s): K56.609 - Unspecified intestinal obstruction, unspecified as to partial versus complete obstruction (2) Gastroesophageal reflux disease: Status: Acute Category: Medical Code(s): K21.9 - Gastro-esophageal reflux disease without esophagitis (3) Nausea and vomiting: Status: Acute Category: Medical Code(s): R11.2 - Nausea with vomiting, unspecified Plan #Partial SBO Yesterday, the patient had a diagnostic laparoscopy, laparoscopic lysis of adhesions, freeing of intestinal obstruction and resection of infarcted colonic epiploic appendagitis. There were no apparent complications. This morning NGT was removed and the patient was started on a clear liquid diet. Will continue to treat pain as needed. I really appreciate General Surgery's care for the patient. I will order a CBC and CMP for tomorrow morning. Clear Liquid diet Full code
[2023-05-12 12:00] VITALS: BP 141/88; PULSE 78; RESP 18; O2SAT 97
[2023-05-12 16:00] VITALS: BP 148/89; PULSE 94; RESP 20; TEMP 36.3; O2SAT 98
[2023-05-12 20:00] VITALS: BP 132/77; PULSE 88; RESP 16; TEMP 36.8; O2SAT 94; O2SAT 97
[2023-05-13 04:00] VITALS: BP 108/64; PULSE 59; RESP 16; TEMP 36.8; O2SAT 96; BMI 23.8
--- NOTE | 2023-05-13 04:32 | PC.NURSE ---
Patient slept most of this shift. Patient up ad junito. No complaints of nausea, vomiting or pain. Surgical dressings clean dry and intact. Patient tolerating clear liquids at this time. All vitals WNL. Call martino and personal items in reach POC ongoing.
[2023-05-13 07:02] LABS: Basophils # 0.1 K/mm3 (0-0.2); Basophils % 0.8 % (0.1-2.0); Eosinophils # 0.3 K/mm3 (0.0-0.4); Eosinophils % 3.5 % (0.1-12.0); Hematocrit 40.7 % (42.0-52.0); Hemoglobin 13.2 g/dL (14.1-18.0); Lymphocytes % 21.4 % (10-50); Mean Corpuscular HGB Conc 32.5 g/dL (31.8-35.4); Mean Corpuscular Hemoglobin 29.1 pg (27.0-31.2); Mean Corpuscular Volume 89.7 fl (80-94); Mean Platelet Volume 7.9 fl (7.4-10.4); Monocytes # 0.8 K/mm3 (0.1-1.0); Monocytes % 8.3 % (1.7-9.3); Neutrophils # 6.2 K/mm3 (1.8-7.8); Neutrophils % 66.1 % (37.0-80.0); Platelet Count 333 K/mm3 (142-424); Red Blood Count 4.54 M/mm3 (4.60-6.20); Red Cell Distribution Width 12.5 % (11.5-17.5); White Blood Count 9.4 K/mm3 (4.8-10.8)
--- NOTE | 2023-05-13 07:07 | P.PN_ITS ---
Subjective Patient reports: no new complaints, feels better, flatus and bowel movement Narrative: He states that he feels much better . He has been ambulating without difficulty. He has had no nausea or vomiting and states that clear liquids are going down fine . Exam Data for Last 24 hours Vital signs and Labs for Last 24 Hours: Temp Pulse Resp BP Pulse Ox O2 Del Method 98.2 F 59 L 16 108/64 L 96 Room Air 05/13/23 04:00 05/13/23 04:00 05/13/23 04:00 05/13/23 04:00 05/13/23 04:00 05/13/23 06:40 Laboratory Results - last 24 hr 05/12/23 06:35: Sodium 135 L, Potassium 4.0, Chloride 100, Carbon Dioxide 22, Anion Gap 17.0 H, BUN 9, Creatinine 0.90, Estimated Creat Clear 122, Estimated GFR 90, Est GFR ( Amer) 109 D, Glucose 82, Calcium 8.7, Total Bilirubin 0.8, AST 46, ALT 30, Alkaline Phosphatase 55, Total Protein 6.5, Albumin 3.4 L D , Globulin 3.1, Albumin/Globulin Ratio 1.1 I & O for Last 24 hours: Intake & Output 05/10/23 05/11/23 05/12/23 05/13/23 11:59 11:59 11:59 11:59 Intake Total 1035 / 1035 2580 / 2580 846 / 846 Output Total 0 / 0 0 / 0 510 / 510 350 / 350 Balance 1035 / 1035 2580 / 2580 336 / 336 -350 / -350 Weight 189 lb 2 oz 189 lb 8 oz 189 lb 6 oz 185 lb 9.6 oz Constitutional Constitutional: no acute distress *Routine Respiratory Exam Respiratory: Absent respiratory distress *Routine Cardiovascular Exam Cardiovascular: Absent tachycardia *Routine Abdominal Exam Abdominal: Present soft Comments: Incisions healing without sign of infection Progress Note: A&P Assessment and plan (1) SBO (small bowel obstruction): Status: Acute Assessment and plan: Overall, doing well status post laparoscopic lysis of adhesion and resection of infarcted colonic epiploic appendagitis. Bowel function has returned. He has tolerated clear liquids and is requesting a little more . Full liquid diet without carbonation
[2023-05-13 07:15] LABS: Alanine Aminotransferase 32 U/L (12-78); Albumin Level 3.5 g/dl (3.5-5.0); Albumin/Globulin Ratio 1.1 (1.1-1.8); Alkaline Phosphatase 78 U/L (38-126); Anion Gap 19.9 mEq/L (5-15); Aspartate Amino Transferase 50 U/L (17-59); Bilirubin,Total 0.4 mg/dl (0.2-1.3); Blood Urea Nitrogen 13 mg/dl (9-20); Calcium 8.4 mg/dl (8.4-10.2); Carbon Dioxide 21 mmol/L (22.0-30.0); Chloride 99 mmol/L (98-107); Creatinine Clearance Estimated 108 mL/min (50-200); Estimated Glomerular Filt Rate 80 ml/min (>60); GFR (African American) 97 ML/MIN (>60); Globulin 3.2 g/dL (1.3-3.2); Glucose 74 mg/dl (74-100); Potassium 3.9 mmoL/L (3.5-5.1); Sodium 136 mmol/L (136-145); Total Protein,Serum 6.7 g/dl (6.3-8.2)
--- NOTE | 2023-05-13 07:53 | P.PN_ITS ---
Subjective *Date: 05/13/23 *Time: 13:32 Interval history: No acute events overnight. No bowel movements but he is passing gas. No fevers. Exam Data for Last 24 hours Vital signs and Labs for Last 24 Hours: Temp Pulse Resp BP Pulse Ox O2 Del Method 98.2 F 59 L 16 108/64 L 96 Room Air 05/13/23 04:00 05/13/23 04:00 05/13/23 04:00 05/13/23 04:00 05/13/23 04:00 05/13/23 06:40 Laboratory Results - last 24 hr 05/13/23 06:29: WBC 9.4, RBC 4.54 L, Hgb 13.2 L, Hct 40.7 L, MCV 89.7, MCH 29.1, MCHC 32.5, RDW 12.5, Plt Count 333, MPV 7.9, Neut % (Auto) 66.1, Lymph % (Auto) 21.4, [place] % (Auto) 8.3, Eos % (Auto) 3.5, Baso % (Auto) 0.8, Neut # (Auto) 6.2, Lymph # (Auto) 2.0, [place] # (Auto) 0.8, Eos # (Auto) 0.3, Baso # (Auto) 0.1, Sodium 136, Potassium 3.9, Chloride 99, Carbon Dioxide 21 L, Anion Gap 19.9 H, BUN 13 D, Creatinine 1.00, Estimated Creat Clear 108, Estimated GFR 80, Est GFR ( Amer) 97, Glucose 74, Calcium 8.4, Total Bilirubin 0.4, AST 50, ALT 32, Alkaline Phosphatase 78, Total Protein 6.7, Albumin 3.5, Globulin 3.2, Albumin/Globulin Ratio 1.1 I & O for Last 24 hours: Intake & Output 05/10/23 05/11/23 05/12/23 05/13/23 23:59 23:59 23:59 23:59 Intake Total 1095 / 1095 2160 / 2160 786 / 786 Output Total 0 / 0 460 / 460 50 / 50 350 / 350 Balance 1095 / 1095 1700 / 1700 736 / 736 -350 / -350 Weight 85.786 kg 85.956 kg 85.899 kg 84.187 kg Constitutional Constitutional: no acute distress *Routine HEENT Exam Head: Present normocephalic Eye: Present EOMI and PERRL ENT: Present mucous membranes moist *Routine Neck Exam Neck: Present supple; Absent lymphadenopathy *Routine Respiratory Exam Respiratory: Present CTA bilaterally *Routine Cardiovascular Exam Cardiovascular: Present RRR *Routine Abdominal Exam Abdominal: Present soft and normoactive bowel sounds; Absent rebound or guarding Comments: dressings c/d/i *Routine Extremities Exam Extremities: Absent cyanosis, clubbing or edema *Routine Skin Exam Skin: Present warm; Absent rash *Routine Neurological Exam Neurological: Present alert and oriented X3 Assessment and Plan *Assessment and plan (1) SBO (small bowel obstruction): Status: Acute Category: Medical Code(s): K56.609 - Unspecified intestinal obstruction, unspecified as to partial versus complete obstruction (2) Gastroesophageal reflux disease: Status: Acute Category: Medical Code(s): K21.9 - Gastro-esophageal reflux disease without esophagitis (3) Nausea and vomiting: Status: Acute Category: Medical Code(s): R11.2 - Nausea with vomiting, unspecified Plan #Partial SBO The patient had a diagnostic laparoscopy, laparoscopic lysis of adhesions, freeing of intestinal obstruction and resection of infarcted colonic epiploic a ppendagitis on 05/11. There were no apparent complications. This morning the patient's diet was advanced from CLD to FLD without carbonation. Will continue to treat pain as needed. I really appreciate General Surgery's care for the patient. I will order a CBC and CMP for tomorrow morning. Clear Liquid diet Full code
[2023-05-13 08:00] VITALS: BP 132/75; PULSE 98; RESP 17; TEMP 36.6; O2SAT 95
[2023-05-13 11:30] VITALS: BP 129/75; PULSE 88; RESP 17; TEMP 36.6; O2SAT 98
--- NOTE | 2023-05-13 17:22 | PC.NURSE ---
Addendum entered by Elida Orozco RN 05/13/23 17:23: 3 ABDOMINAL INCISIONS NOTED, CDI. Original Note: A&OX4. TOLERATING RA WELL. HAS BEEN UP WALKING FREQUENTLY. HAS HAD NO C/O PAIN/NA/VO THIS SHIFT. IS EAGER TO GET HOME. TOLERATING FULL LIQUID DIET WELL. FAMILY AT BEDSIDE. VSS.
[2023-05-13 20:00] VITALS: BP 144/66; PULSE 87; RESP 18; TEMP 36.5; O2SAT 94
[2023-05-13 23:49] VITALS: BP 113/71; PULSE 78; RESP 18; TEMP 36.5; O2SAT 97
[2023-05-14 04:00] VITALS: BP 119/69; PULSE 77; RESP 18; TEMP 36.6; O2SAT 96; BMI 23.8
--- NOTE | 2023-05-14 06:01 | PC.NURSE ---
Pt has not voiced any c/o to staff t/o shift. VSS. at bedside. Call light within reach.
[2023-05-14 06:40] LABS: Basophils # 0.1 K/mm3 (0-0.2); Basophils % 0.9 % (0.1-2.0); Eosinophils # 0.4 K/mm3 (0.0-0.4); Eosinophils % 6.1 % (0.1-12.0); Hematocrit 40.2 % (42.0-52.0); Hemoglobin 13.4 g/dL (14.1-18.0); Lymphocytes # 1.8 K/mm3 (0.7-4.5); Lymphocytes % 26.4 % (10-50); Mean Corpuscular HGB Conc 33.2 g/dL (31.8-35.4); Mean Corpuscular Hemoglobin 29.6 pg (27.0-31.2); Mean Corpuscular Volume 89.1 fl (80-94); Mean Platelet Volume 7.4 fl (7.4-10.4); Monocytes # 0.7 K/mm3 (0.1-1.0); Monocytes % 9.7 % (1.7-9.3); Neutrophils # 3.9 K/mm3 (1.8-7.8); Neutrophils % 56.9 % (37.0-80.0); Platelet Count 333 K/mm3 (142-424); Red Blood Count 4.52 M/mm3 (4.60-6.20); Red Cell Distribution Width 12.5 % (11.5-17.5); White Blood Count 6.9 K/mm3 (4.8-10.8)
[2023-05-14 07:00] LABS: Alanine Aminotransferase 36 U/L (12-78); Albumin Level 3.4 g/dl (3.5-5.0); Albumin/Globulin Ratio 1.1 (1.1-1.8); Alkaline Phosphatase 78 U/L (38-126); Anion Gap 14.5 mEq/L (5-15); Aspartate Amino Transferase 45 U/L (17-59); Bilirubin,Total 0.3 mg/dl (0.2-1.3); Blood Urea Nitrogen 6 mg/dl (9-20); Calcium 8.5 mg/dl (8.4-10.2); Carbon Dioxide 26 mmol/L (22.0-30.0); Chloride 101 mmol/L (98-107); Creatinine Clearance Estimated 119 mL/min (50-200); Estimated Glomerular Filt Rate 90 ml/min (>60); GFR (African American) 109 ML/MIN (>60); Globulin 3.1 g/dL (1.3-3.2); Glucose 98 mg/dl (74-100); Potassium 3.5 mmoL/L (3.5-5.1); Sodium 138 mmol/L (136-145); Total Protein,Serum 6.5 g/dl (6.3-8.2)
[2023-05-14 07:37] VITALS: BP 115/70; PULSE 84; RESP 16; TEMP 36.7; O2SAT 98
--- NOTE | 2023-05-14 07:39 | EXP.PN ---
Subjective *Date: 05/14/23 *Time: 07:39 Exam Data for Last 24 hours Vital signs and Labs for Last 24 Hours: Temp Pulse Resp BP Pulse Ox O2 Del Method 97.8 F 77 18 119/69 96 Room Air 05/14/23 04:00 05/14/23 04:00 05/14/23 04:00 05/14/23 04:00 05/14/23 04:00 05/14/23 06:31 Laboratory Results - last 24 hr 05/14/23 06:25: WBC 6.9 D, RBC 4.52 L, Hgb 13.4 L, Hct 40.2 L, MCV 89.1, MCH 29.6, MCHC 33.2, RDW 12.5, Plt Count 333, MPV 7.4, Neut % (Auto) 56.9, Lymph % (Auto) 26.4, [place] % (Auto) 9.7 H, Eos % (Auto) 6.1, Baso % (Auto) 0.9, Neut # (Auto) 3.9, Lymph # (Auto) 1.8, [place] # (Auto) 0.7, Eos # (Auto) 0.4, Baso # (Auto) 0.1, Sodium 138, Potassium 3.5, Chloride 101, Carbon Dioxide 26, Anion Gap 14.5, BUN 6 L D, Creatinine 0.90, Estimated Creat Clear 119, Estimated GFR 90, Est GFR ( Amer) 109, Glucose 98 D, Calcium 8.5, Total Bilirubin 0.3, AST 45, ALT 36, Alkaline Phosphatase 78, Total Protein 6.5, Albumin 3.4 L, Globulin 3.1, Albumin/Globulin Ratio 1.1 I & O for Last 24 hours: Intake & Output 05/11/23 05/12/23 05/13/23 05/14/23 23:59 23:59 23:59 23:59 Intake Total 2160 / 2160 786 / 786 1560 / 1860 300 / 300 Output Total 460 / 460 50 / 50 551 / 551 300 / 300 Balance 1700 / 1700 736 / 736 1009 / 1309 0 / 0 Weight 85.956 kg 85.899 kg 84.187 kg 84.056 kg
--- NOTE | 2023-05-14 08:09 | EXP.SURG.PN ---
Subjective Narrative: Patient feels well with no complaints. He is tolerating full liquid diet. Bowels are moving. He has not required any pain medicine. Exam Data for Last 24 hours Vital signs and Labs for Last 24 Hours: Temp Pulse Resp BP Pulse Ox O2 Del Method 98.1 F 84 16 115/70 98 Room Air 05/14/23 07:37 05/14/23 07:37 05/14/23 07:37 05/14/23 07:37 05/14/23 07:37 05/14/23 07:52 Laboratory Results - last 24 hr 05/14/23 06:25: WBC 6.9 D, RBC 4.52 L, Hgb 13.4 L, Hct 40.2 L, MCV 89.1, MCH 29.6, MCHC 33.2, RDW 12.5, Plt Count 333, MPV 7.4, Neut % (Auto) 56.9, Lymph % (Auto) 26.4, [place] % (Auto) 9.7 H, Eos % (Auto) 6.1, Baso % (Auto) 0.9, Neut # (Auto) 3.9, Lymph # (Auto) 1.8, [place] # (Auto) 0.7, Eos # (Auto) 0.4, Baso # (Auto) 0.1, Sodium 138, Potassium 3.5, Chloride 101, Carbon Dioxide 26, Anion Gap 14.5, BUN 6 L D, Creatinine 0.90, Estimated Creat Clear 119, Estimated GFR 90, Est GFR ( Amer) 109, Glucose 98 D, Calcium 8.5, Total Bilirubin 0.3, AST 45, ALT 36, Alkaline Phosphatase 78, Total Protein 6.5, Albumin 3.4 L, Globulin 3.1, Albumin/Globulin Ratio 1.1 I & O for Last 24 hours: Intake & Output 05/11/23 05/12/23 05/13/23 05/14/23 11:59 11:59 11:59 11:59 Intake Total 2580 / 2580 846 / 846 470 / 470 1810 / 1810 Output Total 0 / 0 510 / 510 350 / 350 501 / 501 Balance 2580 / 2580 336 / 336 120 / 120 1309 / 1309 Weight 189 lb 8 oz 189 lb 6 oz 185 lb 9.6 oz 185 lb 5 oz *Routine Abdominal Exam Abdominal: Present soft Progress Note: A&P Assessment and plan (1) SBO (small bowel obstruction): Status: Acute Assessment and plan: Discharge home (2) Gastroesophageal reflux disease: Status: Acute (3) Nausea and vomiting: Status: Acute
--- NOTE | 2023-05-14 08:39 | EXP.DC.SUM ---
General Admission date:: 05/04/23 Discharge date: 05/14/23 HPI HPI HPI: Forwarded from Admission H&P: Mr. Carr is a 48 year old male with a past medical history of GERD who presented to the ED with nausea, vomiting and abdominal pain ever since he had dinner yesterday. Initial workup in the ED reveals leukocytosis with 14.5K WBCs, t bili of 1.4, ast 64, alk phos 145, lactate of 2.8 which improved to 0.8, and an abd/pel ct wo revealed findings concerning for a high grade partial or complete small bowel obstruction. No exact point of obstruction is identified. He had surgery for ruptured appendix in 2003 and no other abdominal surgeries. He denies diarrhea, recent fever, chills and sick contacts. He denies chest pain, shortness of breath, cough and dysuria. Hospital Course Hospital Course Hospital Course: The patient had a diagnostic laparoscopy, laparoscopic lysis of adhesions, freeing of intestinal obstruction and resection of infarcted colonic epiploic appendagitis. There were no apparent complications. The patient's symptoms completely resolved by the day of discharge. His abdominal exam was benign. His diet was advanced and by day of discharge he was eating well, passing gas and having bowel movements. Exam Data for Last 24 hours Vital signs and Labs for Last 24 Hours: Temp Pulse Resp BP Pulse Ox O2 Del Method 98.1 F 84 16 115/70 98 Room Air 05/14/23 07:37 05/14/23 07:37 05/14/23 07:37 05/14/23 07:37 05/14/23 07:37 05/14/23 08:32 Laboratory Results - last 24 hr 05/14/23 06:25: WBC 6.9 D, RBC 4.52 L, Hgb 13.4 L, Hct 40.2 L, MCV 89.1, MCH 29.6, MCHC 33.2, RDW 12.5, Plt Count 333, MPV 7.4, Neut % (Auto) 56.9, Lymph % (Auto) 26.4, [place] % (Auto) 9.7 H, Eos % (Auto) 6.1, Baso % (Auto) 0.9, Neut # (Auto) 3.9, Lymph # (Auto) 1.8, [place] # (Auto) 0.7, Eos # (Auto) 0.4, Baso # (Auto) 0.1, Sodium 138, Potassium 3.5, Chloride 101, Carbon Dioxide 26, Anion Gap 14.5, BUN 6 L D, Creatinine 0.90, Estimated Creat Clear 119, Estimated GFR 90, Est GFR ( Amer) 109, Glucose 98 D, Calcium 8.5, Total Bilirubin 0.3, AST 45, ALT 36, Alkaline Phosphatase 78, Total Protein 6.5, Albumin 3.4 L, Globulin 3.1, Albumin/Globulin Ratio 1.1 I & O for Last 24 hours: Intake & Output 05/11/23 05/12/23 05/13/23 05/14/23 23:59 23:59 23:59 23:59 Intake Total 2160 / 2160 786 / 786 1560 / 1860 720 / 720 Output Total 460 / 460 50 / 50 551 / 551 300 / 300 Balance 1700 / 1700 736 / 736 1009 / 1309 420 / 420 Weight 85.956 kg 85.899 kg 84.187 kg 84.056 kg Constitutional Constitutional: no acute distress *Routine HEENT Exam Head: Present normocephalic Eye: Present EOMI and PERRL ENT: Present mucous membranes moist *Routine Neck Exam Neck: Present supple; Absent lymphadenopathy *Routine Respiratory Exam Respiratory: Present CTA bilaterally *Routine Cardiovascular Exam Cardiovascular: Present RRR *Routine Abdominal Exam Abdominal: Present soft and normoactive bowel sounds; Absent tenderness, rebound or guarding *Routine Extremities Exam Extremities: Absent cyanosis, clubbing or edema *Routine Skin Exam Skin: Present warm; Absent rash *Routine Neurological Exam Neurological: Present alert and oriented X3 Results Data Completed and Pending Labs on day of discharge: Labs from last 24 hours 05/14/23 06:25 WBC 6.9 D RBC 4.52 L Hgb 13.4 L Hct 40.2 L MCV 89.1 MCH 29.6 MCHC 33.2 RDW 12.5 Plt Count 333 MPV 7.4 Neut % (Auto) 56.9 Lymph % (Auto) 26.4 [place] % (Auto) 9.7 H Eos % (Auto) 6.1 Baso % (Auto) 0.9 Neut # (Auto) 3.9 Lymph # (Auto) 1.8 [place] # (Auto) 0.7 Eos # (Auto) 0.4 Baso # (Auto) 0.1 Sodium 138 Potassium 3.5 Chloride 101 Carbon Dioxide 26 Anion Gap 14.5 BUN 6 L D Creatinine 0.90 Estimated Creat Clear 119 Estimated GFR 90 Est GFR ( Amer) 109 Glucose 98 D Calcium 8.5 Total Bilirubin 0.3 AST 45 ALT 36 Alkaline Phosphatase 78 Total Protein 6.5 Albumin 3.4
--- NOTE | 2023-05-15 13:32 | CARE MANAGER ---
Contacted patient related to hospital discharge. He states he is doing well. He did not have any new meds and he is aware of follow up appointments. Denies questions or concerns. MIKHAIL Zheng
== END 2023-05-14 09:00 | disposition home or self-care (01) | DRG 357 ==
LOC: ER 11:51 → 2ND 12:52
PROVIDERS: Internal Medicine Adolescent Medicine; Surgery; Admitting Provider Internal Medicine; Emergency Provider Emergency Medicine; PCP Nurse Practitioner Family; Visit Provider Internal Medicine
PROC: 0DBW0ZZ Excision of Peritoneum, Open Approach (ICD-10-PCS; CPT 49000; principal; 2023-05-11 08:45)
DX: K55.049 Acute infarction of large intestine, extent unspecified (principal); K56.690 Other partial intestinal obstruction; K21.9 Gastro-esophageal reflux disease without esophagitis
CPT/HCPCS: 36415; 71045; 74018; 74021; 74177; 74250; 80053; 81001; 83605; 83690; 83735; 84100; 85025; 99285; J0131; J2405; Q9967

== ENCOUNTER 2025-03-21 12:05 | Outpatient (CLI) | payer BC, OTHER, SELFPAY ==
[2025-03-21 19:30] LABS: Hematocrit 45.4 % (42.0-52.0); Hemoglobin 14.8 g/dL (14.1-18.0); Immature Granulocytes % 0.6 %; Mean Corpuscular HGB Conc 32.6 g/dL (31.8-35.4); Mean Corpuscular Hemoglobin 29.5 pg (27.0-31.2); Mean Corpuscular Volume 90.4 fl (80-94); Nucleated Red Blood Cells % 0 %; Platelet Count 342 K/mm3 (142-424); Red Blood Count 5.02 M/mm3 (4.60-6.20); Red Cell Distribution Width-SD 41.5 fL; White Blood Count 6.9 K/mm3 (4.8-10.8)
[2025-03-21 20:34] LABS: Alanine Aminotransferase 20 U/L (12-78); Albumin Level 5.2 g/dl (3.5-5.0); Albumin/Globulin Ratio 1.4 (1.1-1.8); Alkaline Phosphatase 108 U/L (38-126); Anion Gap 19.5 mEq/L (5-15); Aspartate Amino Transferase 32 U/L (17-59); Bilirubin,Total 0.8 mg/dl (0.2-1.3); Blood Urea Nitrogen 14 mg/dl (9-20); Calcium 9.9 mg/dl (8.4-10.2); Carbon Dioxide 25 mmol/L (22.0-30.0); Chloride 100 mmol/L (98-107); Creatinine,Serum 1.10 mg/dl (0.66-1.25); Estimated Glomerular Filt Rate 71 ml/min (>60); GFR (African American) 86 ML/MIN (>60); Globulin 3.8 g/dL (1.3-3.2); Glucose 96 mg/dl (74-100); Potassium 4.5 mmoL/L (3.5-5.1); Sodium 140 mmol/L (136-145); Total Protein,Serum 9.0 g/dl (6.3-8.2)
[2025-03-21 21:12] LABS: Hepatitis C Ab Qual. W/ RFX NEGATIVE (Negative)
[2025-03-21 23:04] LABS: Hemoglobin A1C 6.1 % (4.0-6.0)
--- OUTSIDE RECORDS SUMMARY | 2025-03-22 10:14 | XMS_ITS | Clinical Summary ---
Author Organization [facility] Address [address] [place] [phone] Phone [email or web address] Care Team Providers Care Blow Down Helper Name Role Phone Provider, No Primary Care Provider Unavailabl e Allergies No known active allergies Medications azithromycin (ZITHROMAX) 500 MG tablet Take 500 mg by mouth 1 (one) time each day. ZPack today by PCP 0 Active D3-50 1.25 MG (46302 UT) capsule Take 50,000 Units by mouth 1 (one) time per week. 0 Active GNP Vitamin D Maximum Strength 50 MCG (2000 UT) tablet Take 2,000 Units by mouth 1 (one) time each day. 0 Active ibuprofen (MOTRIN) 200 MG tablet Take 200 mg by mouth every 6 (six) hours if needed for mild pain. Active tadalafil (CIALIS) 20 MG tablet TAKE ONE TABLET BY MOUTH ONCE DAILY approximately 30 minutes BEFORE sexual activity NEEDED max DOSE 1 tablet PER day 1 Active Active Problems No known active problems Immunizations Immunization Administration Dates Next Due Tdap (ADACEL BOOSTRIX) (CVX-115) 12/03/2020 Social History Tobacco Use Types Packs/Day Years Used Date Smoking Tobacco: Never Smokeless Tobacco: Former Intimate Partner Violence Answer Date R ecorded Insults You Not on file 12/23/2020 Threatens You Not on file 12/23/2020 Screams at You Not on file 12/23/2020 Physically Hurt Not on file 12/23/2020 Intimate Partner Violence Score Not on file 12/23/2020 Depression Answer Date Recorded PHQ Total Score Not on file 01/22/2022 Stress Answer Date Recorded Stress in your Life Not on file 07/20/2024 Dealing with Stress 3 07/20/2024 Sex and Gender Information Value Date Recorded Sex Assigned at Not on file 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 Gender Identity Male 12/19/2019 9:33 AM CDT Sexual Orientation Straight 12/19/2019 9: 34 AM CDT Last Filed Vital Signs Vital Sign Reading Time Taken Comments Blood Pressure 126/73 01/18/2021 9:54 AM EDT Pulse 90 01/18/2021 9:54 AM EDT Temperature 36.3 C (97.4 F) 01/18/2021 9:54 AM EDT Respiratory Rate 16 12/24/2020 9:49 AM EDT Oxygen Saturation 97% 01/18/2021 9:54 AM EDT Inhaled Oxygen Concentration - - Weight 77.1 kg (170 lb) 11/21/2020 11:23 AM EST Height 188 cm (6' 2 ) 11/21/2020 11:23 AM EST Body Mass Index 21.83 11/21/2020 11:23 AM EST Plan of Treatment Health Maintenance Due Date Last Done Comments Dental Cleaning/Exam 1975 HIV Screening 1975 Hepatitis C Screening 1975 Hep B Infection Screening - Triple Screen 1993 Hepatitis B Immunization (1 of 3 - 19+ 3-dose series) 1994 Colorectal Cancer Screening 2005 Annual Preventive Exam 10/26/2020 10/26/2019 Covid-19 Immunization (1 - 2 024-25 season) 2024 Zoster Immunization (1 of 2) 2025 Influenza Immunization (#1) 2025 Tetanus Diphtheria and Pertu ssis Immunization (2 - Td or Tdap) 12/03/2030 12/03/2020 HIB Immunization Aged Out No longer e ligible based on patient's age to complete this topic HPV Immunization Aged Out No longer e ligible based on patient's age to complete this topic Hepatitis A Immunization Aged Out No longer eligible based on patient's age to complete this topic Pneumococcal: Ped (0 to 5 Yr s) and At-Risk Member (6 to 64 Yrs) Aged Out No longer e ligible based on patient's age to complete this topic Polio Immunization Aged Out No longer eligible based on patient's age to complete this topic Insurance OPT OUT NO COPAY NB Care Teams Blow Down Helper Relationship Specialty Start Date End Date Provider, [place] [address] PCP - General Clinical Rn Manager 11/21/20
[2025-03-23 08:13] LABS: Hepatitis B Surface Antigen Negative (Negative)
[2025-03-28 01:08] LABS: Testosterone, Total, LC/MS 351 ng/dL (.)
== END 2025-03-21 23:59 | disposition home or self-care (01) ==
LOC: LAB.DROPOF 03-22 10:02
PROVIDERS: PCP Nurse Practitioner Family; Visit Provider Nurse Practitioner Family
DX: E11.9 Type 2 diabetes mellitus without complications (principal); R53.83 Other fatigue; R07.9 Chest pain, unspecified; Z11.59 Encounter for screening for other viral diseases; Z12.5 Encounter for screening for malignant neoplasm of prostate
CPT/HCPCS: 80053; 80074; 83036; 84403; 85025; 87340; 87389; G0103

== ENCOUNTER 2025-04-18 16:23 | Outpatient (CLI) | payer BC, SELFPAY ==
--- OUTSIDE RECORDS SUMMARY | 2025-04-18 16:26 | XMS_ITS | Clinical Summary ---
Author Organization [facility] Address [address] [place] [phone] Phone [email or web address] Care Team Providers Care Fitness Sales Consultant Name Role Phone Provider, No Primary Care Provider Unavailabl e Allergies No known active allergies Medications azithromycin (ZITHROMAX) 500 MG tablet Take 500 mg by mouth 1 (one) time each day. 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 Gender Identity Male 12/19/2019 9:33 AM CDT [...] Health Maintenance Due Date Last Done Comments CT Colonography 1975 Colonoscopy 1975 Colorectal Cancer Screening Combo 1975 DNA Cologuard 1975 Dental Cleaning/Exam 1975 FIT or FOBT Test 1975 HIV Screening 1975 Hepatitis C Screening 1975 Sigmoidoscopy 1975 Hep B Infection Screening - Triple Screen 1993 Hepatitis B Immunization (1 of 3 - 19+ 3-dose series) 1994 Annual Preventive Exam 10/26/2020 10/26/2019 Covid-19 Immunization (1 - 2 -25 season) 2024 Zoster Immunization (1 of 2) [...] OPT OUT NO COPAY NB Care Teams Fitness Sales Consultant Relationship Specialty Start Date End Date Provider, [place] [address] PCP - General Community Relations Police Lieutenant 11/21/20
--- NOTE | 2025-04-18 16:27 | XR_ITS ---
PROCEDURE INFORMATION: Exam: XR Left Wrist Exam date and time: 04/18/2025 4:29 PM Age: 50 years old Clinical indication: Injury or trauma; Fall; Other: Pain; Additional info: L wrist pain TECHNIQUE: Imaging protocol: Radiologic exam of the left wrist. Views: 3 or more views. COMPARISON: No relevant prior studies available. FINDINGS: Bones/joints: Normal anatomic alignment. The bone density is normal for this patient's age. Joint spaces are well preserved. No acutely displaced fractures. No joint dislocation. No aggressive osseous lesions. Soft tissues: There is no significant soft tissue swelling. IMPRESSION: No acute findings.
== END 2025-04-18 23:59 | disposition home or self-care (01) ==
LOC: RAD 16:24
PROVIDERS: PCP Nurse Practitioner Family; Visit Provider Nurse Practitioner Family
DX: M25.532 Pain in left wrist (principal); W19.XXXA Unspecified fall, initial encounter
CPT/HCPCS: 73110